=== PATIENT | female | born 1955 | race Caucasian/White ===

== ENCOUNTER 2018-01-23 12:25 | Outpatient (REF) | payer BC, SELFPAY ==
--- NOTE | 2018-01-23 10:00 | PAPFT_PTH ---
PATIENT: Elsa Patton LOC: [facility] U#:[id number] AGE/SX: 62/F ROOM: RE01/23/[address]: SINCERE Monroy : 1955 BED: DIS: 01/23/2018 SPEC #: [id number] RECD: 01/23/18 12:56 STATUS: JELLY RELatanya #: [id number] ELIZABETH: 01/23/18 10:[address]: Dyan Quiles DEPT: [facility] Cytology RECD BY: Mariluz Lyons ENTERED: 01/23/18 12:56 SP TYPE: PAPFT OTHR DR: Carmen Robertson Tissues: 1 - CX/ENDOCX FOR PAP SMEARS Procedures: PAP THIN PREP/UVM Screening HPV DNA PROBE Comments: [id number]
== END 2018-01-23 12:45 ==
LOC: LBN 12:25
PROVIDERS: Visit Provider Nurse Practitioner Family
DX: Z12.4 Encounter for screening for malignant neoplasm of cervix (principal); Z11.51 Encounter for screening for human papillomavirus (HPV)
CPT/HCPCS: 88142; 87624

== ENCOUNTER 2018-02-15 00:49 | Outpatient (CLI) | payer BC, SELFPAY ==
--- NOTE | 2018-02-15 09:14 | DI.MAMMO_ITS ---
SYMPTOMS/DIAGNOSIS: SCREENING, Z12.31 BILATERAL SCREENING MAMMOGRAM: Mammograms were interpreted according to the usual protocol including computer analysis with CAD system, tomosynthesis and C view imaging. Comparison is made with exams from 2012 and 2017. The breasts are composed of scattered fibroglandular densities, breast density category B. No suspicious masses or suspicious microcalcifications are seen. There has been no significant change. IMPRESSION: Category 1B, negative mammogram. Routine screening is recommended. [facility] ASSESSMENT OF FINDINGS: Negative. Category 1. Patient will receive a letter notifying them of these results. BI-RADS category B. There are scattered areas of fibroglandular density.
== END 2018-02-15 01:09 ==
PROVIDERS: Visit Provider Nurse Practitioner Family
DX: Z12.31 Encounter for screening mammogram for malignant neoplasm of breast (principal)
CPT/HCPCS: 77063; 77067

== ENCOUNTER 2018-03-28 09:04 | Outpatient (CLI) | payer BC, SELFPAY ==
[2018-03-28 09:27] LABS: Absolute Basophil Count 0.01 k/cumm (0.0-0.2); Absolute Eosinophil Count 0.04 k/cumm (0.0-0.7); Absolute Lymphocyte Count 0.51 k/cumm (1.2-3.4); Absolute Monocyte Count 0.42 k/cumm (0.11-0.7); Absolute Neutrophil Count 9.48 k/cumm (1.2-6.7); Basophils % 0.1; Eosinophils % 0.4; HGB 13.3 g/dL (12.0-15.5); Immature Grans % 0.9; Lymphocytes % 4.8; Mean Corp. HGB Concentration 31.7 g/dL (32.0-36.0); Mean Corpuscular Hemoglobin 29.2 pg (27.0-33.0); Mean Corpuscular Volume 92.1 fL (80-95); Mean Platelet Volume 10.1 fL (8.0-11.0); Neutrophils % 89.8; Platelet Count 166 x1000/uL (130-400); RBC 4.56 m/cumm (4.00-5.20); White Blood Cell Count 10.56 k/cumm (4.4-10.8)
[2018-03-28 10:28] LABS: ESR 32 MM/HR (0-30)
[2018-03-28 11:33] LABS: ALT 31 U/L (12-78); AST 14 U/L (15-37); Albumin 3.3 g/dL (3.4-5.0); Alkaline Phosphatase 114 U/L (46-116); Anion Gap 7.1 mmol/L (3-11); BUN 17 mg/dL (7-18); Bilirubin, Total 0.5 mg/dL (0.2-1.0); C-Reactive Protein 0.86 mg/dL (0.0-0.3); CO2 32.9 mmol/L (21.0-32.0); Calcium 8.7 mg/dL (8.5-10.1); Chloride 100 mmol/L (98-107); Glucose 89 mg/dL (70-100); Potassium 3.5 mmol/L (3.5-5.1); Sodium 140 mmol/L (136-145); Total Protein 6.5 g/dL (6.4-8.2)
== END 2018-03-28 09:24 ==
PROVIDERS: PCP Family Medicine; Visit Provider Internal Medicine Rheumatology
DX: M02.39 Reiter's disease, multiple sites (principal); R70.0 Elevated erythrocyte sedimentation rate; Z79.899 Other long term (current) drug therapy
CPT/HCPCS: 36415; 80053; 85652; 85025; 86140

== ENCOUNTER 2018-04-28 09:47 | Outpatient (CLI) | payer BC, SELFPAY ==
[2018-04-28 10:26] LABS: HCT 39.4 % (36.0-46.0); HGB 12.3 g/dL (12.0-15.5); Mean Corp. HGB Concentration 31.2 g/dL (32.0-36.0); Mean Corpuscular Hemoglobin 28.5 pg (27.0-33.0); Mean Corpuscular Volume 91.2 fL (80-95); Mean Platelet Volume 10.2 fL (8.0-11.0); Platelet Count 216 x1000/uL (130-400); RBC 4.32 m/cumm (4.00-5.20); RBC Distribution Width 14.6 % (11.7-14.6); White Blood Cell Count 6.19 k/cumm (4.4-10.8)
[2018-04-28 11:17] LABS: ESR 45 MM/HR (0-30)
[2018-04-28 11:30] LABS: ALT 71 U/L (12-78); AST 36 U/L (15-37); Albumin 3.2 g/dL (3.4-5.0); Alkaline Phosphatase 119 U/L (46-116); Anion Gap 6.8 mmol/L (3-11); BUN 14 mg/dL (7-18); Bilirubin, Total 0.4 mg/dL (0.2-1.0); C-Reactive Protein 3.54 mg/dL (0.0-0.3); CO2 29.2 mmol/L (21.0-32.0); CREATININE 0.72 mg/dL (0.55-1.02); Calcium 8.8 mg/dL (8.5-10.1); Chloride 102 mmol/L (98-107); Glucose 94 mg/dL (70-100); Potassium 4.1 mmol/L (3.5-5.1); Sodium 138 mmol/L (136-145); Total Protein 6.3 g/dL (6.4-8.2)
== END 2018-04-28 10:07 ==
PROVIDERS: PCP Family Medicine; Visit Provider Internal Medicine Rheumatology
DX: M02.39 Reiter's disease, multiple sites (principal); Z79.899 Other long term (current) drug therapy
CPT/HCPCS: 36415; 80053; 85027; 85652; 86140

== ENCOUNTER 2018-05-18 09:49 | Outpatient (CLI) | payer BC, SELFPAY ==
[2018-05-18 10:50] LABS: C-Reactive Protein 0.19 mg/dL (0.0-0.3)
[2018-05-18 10:52] LABS: ESR 19 MM/HR (0-30)
== END 2018-05-18 10:09 ==
PROVIDERS: PCP Family Medicine; Visit Provider Internal Medicine Rheumatology
DX: M02.39 Reiter's disease, multiple sites (principal); Z79.899 Other long term (current) drug therapy
CPT/HCPCS: 36415; 85652; 86140

== ENCOUNTER 2018-06-30 09:04 | Outpatient (CLI) | payer BC, SELFPAY ==
[2018-06-30 12:33] LABS: Abs Immature Grans 0.02 k/cumm (0.0-0.09); Absolute Basophil Count 0.01 k/cumm (0.0-0.2); Absolute Lymphocyte Count 0.55 k/cumm (1.2-3.4); Absolute Monocyte Count 0.23 k/cumm (0.11-0.7); Absolute Neutrophil Count 5.61 k/cumm (1.2-6.7); Basophils % 0.2; HCT 41.8 % (36.0-46.0); HGB 13.3 g/dL (12.0-15.5); Immature Grans % 0.3; Lymphocytes % 8.6; Mean Corp. HGB Concentration 31.8 g/dL (32.0-36.0); Mean Corpuscular Hemoglobin 28.7 pg (27.0-33.0); Mean Corpuscular Volume 90.3 fL (80-95); Mean Platelet Volume 10.9 fL (8.0-11.0); Monocytes % 3.6; Neutrophils % 87.3; Platelet Count 225 x1000/uL (130-400); RBC 4.63 m/cumm (4.00-5.20); RBC Distribution Width 13.9 % (11.7-14.6); White Blood Cell Count 6.42 k/cumm (4.4-10.8)
[2018-06-30 13:19] LABS: ESR 22 MM/HR (0-30)
[2018-06-30 13:28] LABS: ALT 38 U/L (12-78); AST 24 U/L (15-37); Albumin 3.9 g/dL (3.4-5.0); Alkaline Phosphatase 59 U/L (46-116); Anion Gap 7.4 mmol/L (3-11); BUN 19 mg/dL (7-18); Bilirubin, Total 0.5 mg/dL (0.2-1.0); C-Reactive Protein 0.18 mg/dL (0.0-0.3); CO2 32.6 mmol/L (21.0-32.0); CREATININE 0.82 mg/dL (0.55-1.02); Calcium 9.1 mg/dL (8.5-10.1); Chloride 100 mmol/L (98-107); Glucose 114 mg/dL (70-100); Potassium 4.1 mmol/L (3.5-5.1); Sodium 140 mmol/L (136-145); Total Protein 6.9 g/dL (6.4-8.2)
== END 2018-06-30 09:24 ==
PROVIDERS: PCP Family Medicine; Visit Provider Internal Medicine Rheumatology
DX: M02.39 Reiter's disease, multiple sites (principal); Z79.899 Other long term (current) drug therapy
CPT/HCPCS: 36415; 80053; 85652; 85025; 86140

== ENCOUNTER 2018-09-26 11:53 | Outpatient (CLI) | payer BC, SELFPAY ==
[2018-09-26 14:04] LABS: C-Reactive Protein 0.36 mg/dL (0.0-0.3)
[2018-09-26 14:36] LABS: ESR 27 MM/HR (0-30)
== END 2018-09-26 12:13 ==
PROVIDERS: PCP Family Medicine; Visit Provider Internal Medicine Rheumatology
DX: M02.39 Reiter's disease, multiple sites (principal); Z79.899 Other long term (current) drug therapy
CPT/HCPCS: 36415; 85652; 86140

== ENCOUNTER 2019-10-16 15:11 | Outpatient (CLI) | payer BC, SELFPAY ==
--- NOTE | 2019-10-16 15:10 | DI.RAD_ITS ---
EXAM: XR KNEE RT 3V AP,LAT,CYRUS CLINICAL HISTORY: RIGHT KNEE PAIN TECHNIQUE: COMPARISON: No exams were available for comparison FINDINGS: Three views were obtained. There is marked narrowing of the medial tibiofemoral cartilaginous joint space with medial subluxation of femur on the tibia. There are prominent marginal osteophytes at the medial joint. There is patella Carmen, correlation requested regarding any possibility of patellar tendon injury. Th ere is a probable small to moderate-sized knee joint effusion. No evidence of fracture. The patella appears to be normally situated on the Merchant view. IMPRESSION:
== END 2019-10-16 15:31 ==
PROVIDERS: PCP Family Medicine; Referring Provider Family Medicine; Visit Provider Student in an Organized Health Care Education/Training Program
DX: M25.561 Pain in right knee (principal); M25.461 Effusion, right knee
CPT/HCPCS: 73562

== ENCOUNTER 2020-02-21 18:54 | Emergency (ER) | payer OTHER, BC, SELFPAY ==
[2020-02-21 19:07] VITALS: BP 130/77; PULSE 68; RESP 15; TEMP 36.8
--- NOTE | 2020-02-21 19:45 | DI.CT_ITS ---
EXAM: CT HEAD CERVICAL SPINE WO COMPARISON: No exams were available for comparison FINDINGS: CT examination of the cervical spine was performed without contrast administration. There is no evide nce of acute cervical spine fracture or dislocation. Tracheolaryngeal structures appear intact. No ce rvical mass or adenopathy. There are moderate degenerative changes of the cervical spine with multil evel disc space narrowing consistent with disc degeneration and moderate hypertrophic spurring of the vertebral endplates and facets particularly in the mid cervical region.. Noncontrast cranial CT was performed. Ventricular system is normal in appearance. No evidence of acut e intracranial hemorrhage, mass effect, or midline shift. No calvarial fracture. The orbital and temp oral bone structures appear intact. IMPRESSION: No evidence of acute cervical spine injury. No evidence of acute intracranial injury. RADIATION DOSE DELIVERED: 962.78mGy.cm Total DLP 962.78mGy.cm Total DLP DATA REPOSITORY: All CT scans at this facility are submitted to the National Radiology Data Registry (NRDR) Dose Index Registry (DIR) with the [employer] (A[employer]). RADIATION OPTIMIZATION: All CT scans at this facility use at least one of these dose optimization te chniques: automated exposure control; mA and/or kV adjustment per patient size (includes targeted exa ms where dose is matched to clinical indication); or iterative reconstruction.
--- NOTE | 2020-02-21 20:04 | ED.GENADUL_ITS ---
Discharge Plan Disposition Patient Disposition: HOME Condition: Stable Discharge Details Clinical Impression: Fall down stairs, Closed head injury, Acute neck sprain Primary Care Provider: Nadia Hernandez ED Provider: Mingo Shields Home Meds and New Rx's Prescriptions: Continued omeprazole 20 mg capsule,delayed release(DR/EC) 20 mg PO DAILY RF: 0 Discharge Instructions Instructions: Head Injury (ED), Cervical Sprain (ED) Additional Instructions: Wear soft collar as needed for support. Please contact your primary care physician to arrange follow-up. Return to the ER for any worsening or new concerning symptoms. Referrals: Nadia Hernandez [Primary Care Provider] - Discharge Data Discharge Date/Time-TO BE ENTERED AT DEPARTURE: 02/21/20 21:23 Medical Decision Making 64-year-old female fell down a flight of stairs and sustained head injury with axial load. No cervical spinal tenderness but does note some mild discomfort at the base of her occiput. She has persistent moderate frontal parietal headache. Neurologically intact. Hemodynamically stable. Abdominal exam is benign. CT of the head was interpreted by radiology: Unremarkable noncontrast head CT with no evidence of an acute intracranial process. C-collar was applied to protect cervical spine. CT of the cervical spine was interpreted by radiology: Cervical spondylosis with no acute cervical fractures detected. Posterior elements appear grossly intact throughout the cervical spine. Mild anterolisthesis of C2 upon C3 and C3 upon C4. Patient observed in the emergency department for greater than 2 hours and had no new or worsening symptoms. Remained hemodynamically stable. Suspect cervical strain. Will apply soft collar. Usual and customary discharge instructions reviewed with the patient. HPI General Mode of arrival: ambulatory . Date/Time Provider Initiated Documentation: 02/21/20 19:37 . Limitations to Documentation: no limitations . Information obtained by: patient . HPI Narrative: 64-year-old female fell down a flight of stairs just prior to arrival. Patient did strike her head on the ground. Patient has chief complaint of posterior mild to moderate headache. Questionable brief LOC dazed. Patient denies visual change. No numbness or tingling. No chest pain or abdominal pain. She does note she has some pain in her right shoulder that feels muscular and also right buttock. Related Data Home Medications Medication Instructions Recorded Confirmed omeprazole 20 mg capsule,delayed 20 mg PO DAILY 10/16/19 02/21/20 release Allergies Allergy/AdvReac Type Severity Reaction Status Date / Time dextromethorphan Allergy Verified 02/21/20 19:11 General Stated Complaint: Orthopedic AMENA: 4 Review of Systems All systems reviewed & are unremarkable except as noted in HPI and below Gastrointestinal Gastrointestinal: Denies abdominal pain Musculoskeletal Musculoskeletal: Reports as per HPI [facility] Medical History (Updated 02/21/20 @ 21:08 by Mingo Shields MD) Abnormal uterine bleeding (AUB) (~2008) Normal endometrial biopsy. Gastroesophageal reflux disease without esophagitis (12/22/16) Takes [id number] ranitidine 1-2 times a day GERD (gastroesophageal reflux disease) Takes [id number] ranitidine. Family History (Updated 02/01/19 @ 09:52 by Dyan Quiles NP) Father Lung cancer in his 30's Mother AA (aortic aneurysm) COPD (chronic obstructive pulmonary disease) Social History (Updated 01/17/18 @ 08:38 by Meredith Le LPN) Smoking/Tobacco Use Status: Never Smoking risk assessment performed?: Yes Alcohol Intake: current Alcohol Intake frequency: 0-2 drinks per day Substance use type: does not use Current gender identity: female Seatbelt use: always Do you feel safe at home: Yes Do you feel safe in your relationship?: Yes Female Reproductive History Menstrual Menopause type: natural History History 4 Para Hx # Term Pregnancies 4 Multiple births Hx # Pregnancies Ectopic pregnancies AB induced Hx Number of Living Children AB spontaneous Exam Const General: cooperative and no acute distress HENMT Mouth: moist mucous membranes Eyes Conjunctivae: normal conjunctivae Sclera: normal sclerae Neck Neck: trachea midline, supple and tender (base of occiput) Resp Auscultation: clear to auscultation bilaterally, no rales, no rhonchi and no wheezes Cardio Rate: regular rate and not tachycardic Rhythm: regular rhythm GI Palpation: soft, not firm, no guarding, no masses, not rigid and nontender Skin General skin exam: no rashes or lesions noted Neuro General: patient alert, patient awake, patient oriented x3 and tone normal Extrem General: no edema Right lower extremity: hip/thigh Details: normal ROM; no tenderness and no crepitus Psych Mental Status: mental status grossly normal Speech and Movement: speech and movement normal Course Vital Signs Vital signs: Vital Signs Temperature 36.8 C 10/29/20 19:07 Pulse 68 02/21/20 19:07 Respiratory Rate 15 02/21/20 19:07 Blood Pressure 130/77 02/21/20 19:07 Temperature 36.8 C 02/21/20 19:07 Temperature Source Temporal Artery Scan 02/21/20 19:07 Pulse 68 02/21/20 19:07 Respiratory Rate 15 02/21/20 19:07 Respiratory Effort 02/21/20 19:17 Blood Pressure 130/77 02/21/20 19:07 Blood Pressure Position Sitting 02/21/20 19:07 Oxygen Delivery Method Room Air 02/21/20 19:07 Oxygen Flow Rate 0 02/21/20 19:07 Pain Level 5 02/21/20 19:07
[2020-02-21 20:51] VITALS: BP 122/62; PULSE 62; O2SAT 98
--- NOTE | 2020-02-21 21:02 | DI.VRAD_ITS ---
PROCEDURE INFORMATION: Exam: CT Head Without Contrast Exam date and time: 02/21/2020 7:54 PM Age: 64 years old Clinical indication: Injury or trauma; Fall; Work related; Blunt trauma (contusions or hematomas); Consciousness not specified; Injury date: 02/21/20; Injury details: Fell down basement stairs TECHNIQUE: Imaging protocol: Computed tomography of the head without contrast. Radiation optimization: All CT scans at this facility use at least one of these dose optimization techniques: automated exposure control; mA and/or kV adjustment per patient size (includes targeted exams where dose is matched to clinical indication); or iterative reconstruction. COMPARISON: No relevant prior studies available. FINDINGS: Brain: Cerebral sulci show bilateral symmetry with no supratentorial mass or mass effect detected. Brainstem and cerebellum are normal in appearance. There is no evidence of acute intracranial hemorrhage. Cerebral ventricles: Ventricular and cisternal spaces are normal in size and configuration and there is no midline shift or hydrocephalus seen. Bones/joints: Bony calvarium and skull base are intact and no acute fractures are detected. Paranasal sinuses: Paranasal sinuses are clear throughout and their bony margins are intact at the levels imaged. Mastoid air cells: Normally pneumatized and clear bilaterally. Soft tissues: Unremarkable. IMPRESSION: Unremarkable noncontrast head CT with no evidence of an acute intracranial process. PROCEDURE INFORMATION: Exam: CT Cervical Spine Without Contrast Exam date and time: 02/21/2020 7:54 PM Age: 64 years old Clinical indication: Injury or trauma; Fall; Work related; Blunt trauma (contusions or hematomas); Consciousness not specified; Injury date: 02/21/20; Injury details: Fell down basement stairs TECHNIQUE: Imaging protocol: Computed tomography images of the cervical spine without contrast. Radiation optimization: All CT scans at this facility use at least one of these dose optimization techniques: automated exposure control; mA and/or kV adjustment per patient size (includes targeted exams where dose is matched to clinical indication); or iterative reconstruction. COMPARISON: No relevant prior studies available. FINDINGS: Bones/joints: The craniocervical and atlantoaxial articulations are preserved and the odontoid process appears intact. There are mild anterolisthesis of C2 upon C3 and C3 upon C4 and there is preservation of vertebral body height throughout cervical levels with no acute fractures or dislocations detected. Posterior elements appear grossly intact throughout the cervical spine. Chronic right TMJ arthropathy noted. Discs/Spinal canal/Neural foramina: There is loss of disc space height and mild posterior osteocartilaginous ridging at C4-C5, C5-C6 and C6-C7 with no severe central canal stenosis detected at any cervical level. Uncovertebral changes produce mild foraminal distortions at mid to lower cervical levels bilaterally. Soft tissues: Unremarkable. Lungs: No pneumothorax or consolidation detected at the lung apices. IMPRESSION: Cervical spondylosis with no acute cervical fractures detected. Dictated and Authenticated by: Mateo Meeks MD. Ordering:SUZIE Aguila MD
== END 2020-02-21 21:23 | disposition home or self-care (01) ==
PROVIDERS: Emergency Provider Student in an Organized Health Care Education/Training Program; PCP Family Medicine
DX: S09.8XXA Other specified injuries of head, initial encounter (principal); S13.9XXA Sprain of joints and ligaments of unspecified parts of neck, initial encounter; W10.8XXA Fall (on) (from) other stairs and steps, initial encounter
CPT/HCPCS: 99284; 70450; 72125; 99283; L0120

== ENCOUNTER 2020-02-26 01:29 | Outpatient (CLI) | payer BC, SELFPAY ==
--- NOTE | 2020-02-26 11:17 | DI.MAMMO_ITS ---
EXAM: MG MAMMO SCREENING CLINICAL HISTORY: SCREENING,Z12.31 TECHNIQUE: Bilateral full field digital CC and MLO mammographic images were obtained with 3D tomosyn thesis and utilizing computer aided detection (CAD). COMPARISON: Available for comparison. FINDINGS: Masses/Architectural Distortion: New asymmetric density in the upper right breast on the mediolateral oblique view. Stable asymmetric breast tissue in the upper outer quadrant of the left breast. Microcalcifications: No suspicious pleomorphic-type are seen. Skin Thickening/Nipple Retraction: None. IMPRESSION: 1. New asymmetric density in the upper right breast on the MLO view. 2. Spot compression view and a right breast ultrasound are recommended for further evaluation. BI-RADS Category 0 - Assessment Incomplete: Need additional imaging evaluation Breast Density - Category B - Scattered areas of fibroglandular density A negative radiographic report should not delay biopsy if a dominant or clinically suspicious mass is present. Up to ten percent of cancers are not identified on mammography. A negative report may reinforce clinical impression. Adenosis and dense breasts may obscure an underlying neoplasm. False positive reports average 6 to 10%. Patient will receive a letter notifying them of these results.
== END 2020-02-26 01:49 ==
PROVIDERS: PCP Family Medicine; Visit Provider Nurse Practitioner Family
DX: Z12.31 Encounter for screening mammogram for malignant neoplasm of breast (principal); R92.8 Other abnormal and inconclusive findings on diagnostic imaging of breast
CPT/HCPCS: 77063; 77067

== ENCOUNTER 2020-02-27 14:38 | Outpatient (CLI) | payer BC, OTHER, SELFPAY ==
--- NOTE | 2020-02-27 11:45 | DI.RAD_ITS ---
EXAM: XR STANDING ALIGNMENT CLINICAL HISTORY: Knee pain. TECHNIQUE: 2D digital imaging was performed. COMPARISON: No exams were available for comparison FINDINGS: The hips are unremarkable. Moderate degenerative changes are seen in the right knee with joint space narrowing and periarticular spurring predominantly in the medial joint compartment. There is mild m edial compartment joint space narrowing of the left knee. The ankles are unremarkable. The right lo wer extremity measures 87.9 cm. The left lower extremity measures 88.1 cm. IMPRESSION: Osteoarthritis of the knees. Right greater than left. DATA REPOSITORY: RADIATION DOSE DELIVERED:
== END 2020-02-27 14:58 ==
PROVIDERS: PCP Family Medicine; Visit Provider Student in an Organized Health Care Education/Training Program
DX: M17.0 Bilateral primary osteoarthritis of knee (principal)
CPT/HCPCS: 77073

== ENCOUNTER 2020-02-28 00:37 | Outpatient (CLI) | payer BC, SELFPAY ==
--- NOTE | 2020-02-28 | DI.US_ITS ---
EXAM: MG MAMMO SCREEN CALL BACK UNI and U/S breast RT limited CLINICAL HISTORY: F/U MAMMO, NEW ASYMMETRIC DENSITY UPPER RT BREAST ON MLO. TECHNIQUE: Craniocaudal and mediolateral oblique Full Field Digital Mammography views of the right b reast with Computer Aided Diagnosis followed by Tomosynthesis and right breast ultrasound. COMPARISON: Prior examinations for comparison. FINDINGS: Mammography/Tomosynthesis: Masses/Architectural Distortion: None seen. Microcalcifictions: No suspicious pleomorphic-type are seen. Skin Thickening/Nipple Retraction: None. Right breast US: Echotexture: Normal appearance of the glandular tissue. Shadowing: No suspicious foci. Cyst: None. Solid lesions: None seen. Ductal dilation: None. IMPRESSION: 1. No evidence of malignancy is noted. 2. A six-month follow-up right mammogram is requested for re-evaluation. 3. The findings were discussed with the patient on the date of the examination. BI-RADS Category 3 - 6 month - Probably Benign Finding: Recommend follow-up mammography in 6 months Breast Density - Category B - Scattered areas of fibroglandular density A negative radiographic report should not delay biopsy if a dominant or clinically suspicious mass is present. Up to ten percent of cancers are not identified on mammography. A negative report may reinforce clinical impression. Adenosis and dense breasts may obscure an underlying neoplasm. False positive reports average 6 to 10%. Patient will receive a letter notifying them of these results.
== END 2020-02-28 00:57 ==
PROVIDERS: PCP Family Medicine; Visit Provider Nurse Practitioner Family
DX: R92.8 Other abnormal and inconclusive findings on diagnostic imaging of breast (principal)
CPT/HCPCS: 76642; 77063; 77067

== ENCOUNTER 2020-04-08 02:24 | Outpatient (CLI) | payer BC, SELFPAY ==
[2020-04-10 21:30] LABS: COVID-19 RT-PCR Result NEGATIVE (Negative)
== END 2020-04-08 02:44 ==
PROVIDERS: PCP Family Medicine; Visit Provider Student in an Organized Health Care Education/Training Program
DX: Z11.59 Encounter for screening for other viral diseases (principal); Z01.818 Encounter for other preprocedural examination
CPT/HCPCS: U0003

== ENCOUNTER 2020-04-11 06:21 | Day surgery (SDC) | payer BC, SELFPAY ==
[2020-04-11 06:33] VITALS: BP 120/69; PULSE 65; RESP 16; TEMP 36.5; O2SAT 98
[2020-04-11] MEDS: Acetaminophen 500 MG TAB 1000 MG PO (06:58)
[2020-04-11] MEDS: Celecoxib 200 MG CAP 400 MG PO (06:58)
[2020-04-11] MEDS: Gabapentin 300 MG CAP PO (06:58)
[2020-04-11] MEDS: Lactated Ringers 1,000 ML 100 ML IV (06:58)
--- NOTE | 2020-04-11 07:15 | DI.RAD_ITS ---
EXAM: XR KNEE RT 2V AP,LAT CLINICAL HISTORY: Postop. TECHNIQUE: 2D digital imaging was performed. COMPARISON: CR XR KNEE RT 3V AP,LAT,CYRUS from 10/16/2019 FINDINGS: BONES: No acute fracture is present. No bony destructive lesion is seen. JOINTS: The knee is normally aligned. The patient is now status post partial right knee replacement. The orthopedic hardware appears in good position. SOFT TISSUE: Postoperative changes are seen in the soft tissues. IMPRESSION: Status post partial right knee replacement. DATA REPOSITORY: RADIATION DOSE DELIVERED:
[2020-04-11] MEDS: ceFAZolin 2 GM/50 ML BAG IVPB (07:40)
[2020-04-11] MEDS: Bupivacaine 0.25% Pres-Free 30 ML VIAL (09:45)
[2020-04-11] MEDS: Ketorolac 30 MG/ML VIAL (09:45)
[2020-04-11 10:45] VITALS: BP 93/48; PULSE 67; RESP 16; TEMP 36.2; O2SAT 97
[2020-04-11 10:50] VITALS: BP 93/45; PULSE 68; RESP 13; TEMP 36.2; O2SAT 97
--- NOTE | 2020-04-11 10:54 | PDOC.DSDIS_ITS ---
Discharge Plan Disposition Patient Disposition: HOME Condition: Stable Discharge Details Reason For Visit: Right knee surgery Attending Provider: Jose Eduardo Bueno Primary Care Provider: Nadia Hernandez Home Meds and New Rx's Prescriptions: New naproxen 250 mg tablet 250 - 500 mg PO BID PRN (Reason: Moderate pain or swelling) Qty: 60 RF: 0 aspirin 325 mg tablet,delayed release (DR/EC) 325 mg PO BID 30 Days Qty: 60 RF: 0 oxycodone 5 mg tablet 5 - 10 mg PO Q4H PRN (Reason: moderate to severe pain) Qty: 16 RF: 0 Continued omeprazole 20 mg capsule,delayed release(DR/EC) 20 mg PO DAILY RF: 0 Discharge Instructions Additional Instructions: Surgery: Right medial unicondylar knee replacement Activity: Weightbearing as tolerated. Recommend elevation to minimize swelling and discomfort. Walk as comfort allows. May use walker as needed. Important to restore full knee extension as soon as possible. May gently progress knee flexion over the next few weeks. Do not rest with pillows behind knee to prevent knee from getting stuck bent. Physical therapy prescription will be sent electronically. Prescriptions: Aspirin 325 mg take 1 twice a day to prevent a blood clot 30 days Naproxen 250 mg take 1-2 every 12 hours with a meal as needed for moderate pain Oxycodone 5 mg take 1-2 every 4-6 hours as needed for severe pain You may use [id number] Tylenol (acetaminophen) as needed for mild pain. These pain medications may be taken all at once or in different combinations as needed. Also, recommend Colace (docusate) as a stool softener as surgery and pain medicine cause constipation. Dressings: Leave Band-Aid in place until follow-up. Keep clean and dry at all times. May remove Fransisco wrap tomorrow. May re-wrap with Fransisco wrap to help control swelling as needed. Follow-up: 10-14 days with an orthopedic physician janitorial assistant and [address] Bueno You may take off the leg compression Fransisco wrap and stockings tomorrow at home. You may also leave them on a few days longer if you have a history of leg swelling or edema. Let us know right away if you develop any redness, drainage, fevers, chest pain, or trouble breathing. Do not drink alcohol or drive for at least 24 hours after anesthesia. Please call the office during business hours with any questions or concerns. Referrals: Jose Eduardo Bueno MD [ [facility] STAFF PHYSICIAN] - Discharge Orders Discharge Orders: Discharge Order (Routine); Ordered 04/11/20 Ordered By: Jose Eduardo Bueno DS: Diagnosis Discharge Diagnosis (1) Arthritis of knee, right: Status: Acute
[2020-04-11 10:55] VITALS: BP 103/49; PULSE 74; RESP 18; TEMP 36.2; O2SAT 96
--- NOTE | 2020-04-11 10:57 | W.PM.OP ---
Date of service: 04/11/20 Time of Service: 08:00 Operative Note Operative Note DATE OF PROCEDURE: 04/11/20 PRE-OP DIAGNOSIS: 1. Right knee medial compartmental arthritis POST-OP DIAGNOSIS: same PROCEDURE: 1. Right knee medial unicompartmental arthroplasty, CPT # 50556 The administrative assistant office manager was medically required as this procedure involves retraction, protection of neurovascular structures, and manipulation of multiple instruments and implants at the same time, which cannot be done without a skilled administrative assistant office manager. SURGEON: Jose Eduardo Bueno DIRECTOR OF STRATEGIC SOURCING: Xena Clifton ANESTHESIA: MAC, regional, local and spinal ESTIMATED BLOOD LOSS: 75 TOURNIQUET TIME: 39 COMPLICATIONS: None Patient was transported to: PACU Patient's condition: stable Implants: DePuy Sigma HP partial knee size 2 metal-backed tibial tray, 8 mm tibial insert fixed bearing, size 2 femoral component Indications: Please see complete medical record for details. Findings: Largely isolated medial compartment arthritis with discrete grade 1 to central trochlear cartilage lesion about 5 x 8 mm Procedure Description: The patient was taken to the operating room and transferred to the operating room table. Spinal anesthesia was induced. All bony prominences were well-padded. Preoperative antibiotics and 1 g TXA were administered. A tourniquet was placed loosely over padding high on the patient's thigh. The knee and lower extremity were prepped and draped in the usual sterile fashion. The correct patient, procedure, and side of the procedure were all verified prior to incision. A slightly medial of midline longitudinal approach was used to the knee extending from the superior pole the patella to the distal aspect of the tibial tubercle. The quadriceps tendon, patella borders, and patellar tendon were exposed. A full-thickness arthrotomy was performed starting splitting the quadriceps tendon and leaving a sleeve of tissue on the medial aspect of the patella and taking care to progress along the medial margin the patellar tendon. The MCL was elevated off the proximal medial tibia. The tibial alignment jig was set in place on the anterior medial aspect of the tibia and carefully adjusted to achieve proper alignment in the coronal and sagittal planes. Reciprocating saw was used to create the vertical cut at the medial aspect of the medial tibial eminence taking care to protect the ACL ligament footprint. The transverse cut was then done using the microsagittal saw through the jig taking care to retract and protect the MCL. The bone piece and cut were inspected and found to be appropriate for patient anatomy. A box rasp was used to clean up the cut especially the L component. The 8 mm spacer block was inserted and found to have good stability and 9 degrees of flexion and the 9 mm spacer block in full extension with approximately 2 mm of joint space opening in 30 degrees of flexion. With the knee in extension, the tibial trial spacer block was used to saroj the rotational alignment and anterior extent of the femoral component. The spacer block was removed and the tibia was sized with the depth gauge. The distal femoral cutting block was inserted with a 1 mm distal femoral mely taking care to orient it appropriately. The cut was done using the saw through the guide. The guide was removed, and the femur was sized with the femoral sizing blocks. The appropriate sized cutting jig was selected. Care was taken to ensure the block was flush with the resected distal femur bone surface. A curved gouge was used to cut the profile of the proximal tip of the femoral prosthesis, saroj the extent of the anterior chamfer cut, and prevent trochlear cartilage delamination. The posterior cut was done through the jig, the anterior cut was done using the osteotomes, the posterior chamfer cut was done to the jig, and the drill was used to drill the 2 peg holes. The cutting block and bone cuts were removed. The medial meniscus remnant was removed. The femoral component trial was placed in the distal femur and the 8 mm spacer block confirmed appropriate balancing in flexion, extension, and again 2 mm of medial joint space opening in 30 degrees of flexion. Tibial template was inserted and the size confirmed to be appropriate. The keel was used by hand to remove bone from the slot and the tibial peg drill was used in the peg hole. The tourniquet was inflated for optimal cementation. The pulse lavage was used to clean the bone surfaces. SmartSet medium viscosity cement was prepared. At the appropriate time during the early working phase, the cement was applied to the backside of the tibial and femoral components. Then, cement was carefully placed and pressurized into the proximal tibia taking care to only have minimal cement posteriorly. The tibial component was inserted at an angle and then impacted directing pressure from posterior to anterior to keep the flow of cement from posterior to anterior. Cement was then applied to the distal femur and the femoral component impacted. Excess cement was removed. The knee was brought into full extension and this position with axial load was maintained until the cement was completely hardened 24 minutes Tibial tray computer aided design designer was removed, and the final tibial insert was inserted and clicked into place. The knee was tested through range of motion found to be stable with equal balancing from full extension to flexion past 90 degrees and a couple millimeters of medial joint space opening in 30 degrees of flexion. The wound was copiously irrigated with the pulse lavage and then Irrisept. A combination 266 mg Exparel, 30 mg ketorolac, and 50 mL bupivicaine 0.25% pain injection was widely infiltrated about the knee. Appropriate hemostasis was achieved. The capsule was approximated using #1 Vicryl in a figure-of-8 interrupted fashion and then closed using Stratafix #1 PDS barbed suture in a running fashion. The superficial layers were irrigated. Subcutaneous tissue was closed using 2-0 Monocryl in a buried interrupted fashion. Skin was closed using 3-0 Monocryl in a buried subcuticular fashion. The skin incision was glued and then covered with a Mepilex Ag dressing. An Fransisco wrap was applied from the foot up to the thigh. The patient awoke from anesthesia without complication was transferred to the recovery room in stable condition.
[2020-04-11] MEDS: oxyCODONE 5 MG TAB PO (11:19)
[2020-04-11] MEDS: ceFAZolin 1 GM/50 ML BAG IVPB (11:40)
[2020-04-11 11:47] VITALS: BP 112/6; PULSE 59; RESP 16; TEMP 36.4; O2SAT 96
--- NOTE | 2020-04-11 16:48 | NUR.NOTE ---
Nursing Note: AT 1600 ELLIOTT CATHETER PLACED AND 200 CC OF CYU EMPTIED INTO THE ELLIOTT BAG. PT EDUCATED ON ELLIOTT CARE AND ALSO CONCERTING BAG TO LET BAG. PT STATES HER SISTER IN LAW IS A NURSE AND SHE WOULD HAVE HER A RESOURCE TOO. PT EDUCATED ON HOW TO DRESS WITH THE ELLIOTT BAG TOO. BEING AWARE OF IF THE CORD IS KINKED OR NOT TOO. GREGORIO WRAPS CHANGED PER MD ORDER PT HAD VOIDED ON THE PREVIOUS GREGORIO WRAPS.
== END 2020-04-11 16:40 | disposition home or self-care (01) ==
PROVIDERS: PCP Family Medicine; Visit Provider Student in an Organized Health Care Education/Training Program
PROC: (CPT 27446; principal; 2020-04-11 07:30)
DX: M17.11 Unilateral primary osteoarthritis, right knee (principal); K21.9 Gastro-esophageal reflux disease without esophagitis
CPT/HCPCS: 27446; 73560; J0690; J1100; J1885; J2001; J2250; J2405

== ENCOUNTER 2020-05-07 15:01 | Outpatient (CLI) | payer BC, SELFPAY ==
--- NOTE | 2020-05-07 14:15 | DI.RAD_ITS ---
EXAM: XR KNEE RT 2V AP,LAT CLINICAL HISTORY: F/u. TECHNIQUE: 2D digital imaging was performed. COMPARISON: CR XR KNEE RT 2V AP,LAT from 04/11/2020 FINDINGS: Stable position alignment of the components of the medial hemiarthroplasty. No fracture or loosening . No radiographic evidence of osteomyelitis. There is a joint effusion noted. IMPRESSION: DATA REPOSITORY: RADIATION DOSE DELIVERED:
== END 2020-05-07 15:21 ==
PROVIDERS: PCP Family Medicine; Visit Provider Student in an Organized Health Care Education/Training Program
DX: Z96.651 Presence of right artificial knee joint (principal); M25.461 Effusion, right knee
CPT/HCPCS: 73560

== ENCOUNTER 2020-06-02 09:18 | Outpatient (REF) | payer BC, SELFPAY ==
[2020-06-02 14:15] LABS: HCT 40.8 % (36.0-46.0); HGB 12.6 g/dL (11.2-15.7); MCHC 30.9 % (32.0-36.0); MCV 90.7 fL (80-95); MPV 11.6 fL (8.0-11.0); Platelet Count 240 10^3/uL (130-400); RDW 12.9 % (11.7-14.6); RDW-SD 42.7 fL; WBC 4.92 10^3/uL (4.4-10.8)
[2020-06-02 14:28] LABS: ALT 58 U/L (14-59); AST 45 U/L (15-37); Albumin 3.8 g/dL (3.4-5.0); Alkaline Phosphatase 99 U/L (46-116); Anion Gap 7.2 mmol/L (3-11); BUN 22 mg/dL (7-18); Bilirubin, Total 0.4 mg/dL (0.2-1.0); CO2 30.8 mmol/L (21.0-32.0); CREATININE 0.7 mg/dL (0.55-1.02); Calcium 9.3 mg/dL (8.5-10.1); Calculated LDL 117 mg/dL (<100); Chloride 104 mmol/L (98-107); Cholesterol 199 mg/dL (<200); Glucose 81 mg/dL (74-106); HDL Cholesterol 73 mg/dL (40-60); Potassium 4.8 mmol/L (3.5-5.1); Sodium 142 mmol/L (136-145); Total Protein 6.8 g/dL (6.4-8.2); Triglyceride 47 mg/dL (<150)
== END 2020-06-02 09:19 | disposition home or self-care (01) ==
LOC: NCHCN 09:18
PROVIDERS: PCP Family Medicine; Visit Provider Family Medicine
DX: Z00.00 Encounter for general adult medical examination without abnormal findings (principal); Z13.0 Encounter for screening for diseases of the blood and blood-forming organs and certain disorders involving the immune mechanism; Z13.220 Encounter for screening for lipoid disorders; Z13.228 Encounter for screening for other metabolic disorders
CPT/HCPCS: 80053; 80061; 85027

== ENCOUNTER 2020-07-30 14:06 | Outpatient (CLI) | payer BC, SELFPAY ==
--- NOTE | 2020-07-30 13:45 | DI.RAD_ITS ---
EXAM: XR KNEE RT 2V AP,LAT INDICATION: s/p right knee unicompartmental replacement. COMPARISON: CR XR KNEE RT 2V AP,LAT from 05/07/2020 TECHNIQUE: 2D digital imaging was performed. FINDINGS: There has been no change in the medial femoral tibial joint space prosthesis. No abnormal bony lucen cies are seen. There is question of a small joint effusion. Degenerative changes are seen at the pa tellofemoral joint. DATA REPOSITORY: RADIATION DOSE DELIVERED:
== END 2020-07-30 14:07 | disposition home or self-care (01) ==
LOC: DIORS 14:07
PROVIDERS: PCP Family Medicine; Referring Provider Family Medicine; Visit Provider Physician Assistant
DX: M17.11 Unilateral primary osteoarthritis, right knee (principal); Z96.651 Presence of right artificial knee joint; Z47.1 Aftercare following joint replacement surgery
CPT/HCPCS: 73560

== ENCOUNTER 2020-08-25 01:13 | Outpatient (CLI) | payer BC, SELFPAY ==
--- NOTE | 2020-08-25 | DI.MAMMO_ITS ---
Exam(s) MG MAMMO DIAGNOSTIC UNI EXAM: MG MAMMO DIAGNOSTIC UNI CLINICAL HISTORY: DIAGNOSTIC, F/U ABNL MAMMO, R92.8.6 MONTH FOLLOW UP. TECHNIQUE: Craniocaudal and mediolateral oblique Full Field Digital Mammography views of the right b reast with Computer Aided Diagnosis followed by Tomosynthesis. COMPARISON: Comparison with prior examinations. FINDINGS: Mammography/Tomosynthesis: Masses/Architectural Distortion: None seen. Microcalcifictions: No suspicious pleomorphic-type are seen. Skin Thickening/Nipple Retraction: None. IMPRESSION: 1. No evidence of malignancy is noted. 2. Unless there is more urgent need, follow-up screening mammography is recommended, as per [place] [employer] guidelines. 3. The findings were discussed with the patient on the date of the examination. BI-RADS Category 1 - Negative Breast Density - Category B - Scattered areas of fibroglandular density Breast density Category C or D implies that the patient has dense breast tissue. Dense breast tissue can make it harder to find cancer on a mammogram. Dense breast tissue is also associated with an incr eased risk of breast cancer. This information about the result of the mammogram report was provided to the patient to raise their awareness. Use this report when you speak with the patient about their risks for breast cancer, which includes their family history. At that time, you may recommend additional screening tests (Ultrasoun d or MRI) as these tests may add significant information. A negative radiographic report should not delay biopsy if a dominant or clinically suspicious mass is present. Up to ten percent of cancers are not identified on mammography. A negative report may reinforce clinical impression. Adenosis and dense breasts may obscure an underlying neoplasm. False positive reports average 6 to 10%. Patient will receive a letter notifying them of these results.
== END 2020-08-25 01:33 ==
PROVIDERS: PCP Family Medicine; Visit Provider Nurse Practitioner Family
DX: Z12.31 Encounter for screening mammogram for malignant neoplasm of breast (principal); R92.8 Other abnormal and inconclusive findings on diagnostic imaging of breast; N64.59 Other signs and symptoms in breast
CPT/HCPCS: 77061; 77065; G0279

== ENCOUNTER 2021-04-08 13:07 | Outpatient (CLI) | payer BC, SELFPAY ==
--- NOTE | 2021-04-08 12:45 | DI.RAD_ITS ---
Exam(s) XR KNEE RT 2V AP,LAT EXAM: XR KNEE RT 2V AP,LAT CLINICAL HISTORY: right knee replacement f/u. TECHNIQUE: 2D digital imaging was performed. COMPARISON: Prior x-rays 07/30/2020 FINDINGS: There is continued stable position alignment of the components of medial arthroplasty. No fracture l oosening evident. No radiographic evidence of osteomyelitis. IMPRESSION: DATA REPOSITORY: RADIATION DOSE DELIVERED:
== END 2021-04-08 13:08 | disposition home or self-care (01) ==
LOC: DIORS 13:07
PROVIDERS: PCP Family Medicine; Referring Provider Family Medicine; Visit Provider Student in an Organized Health Care Education/Training Program
DX: Z96.651 Presence of right artificial knee joint (principal); Z47.1 Aftercare following joint replacement surgery
CPT/HCPCS: 73560

== ENCOUNTER 2021-05-21 10:31 | Outpatient (REF) | payer BC, SELFPAY ==
--- NOTE | 2021-05-21 09:45 | PAPFT_PTH ---
PATIENT: Elsa Patton LOC: [facility] U#:[id number] AGE/SX: 65/F ROOM: RE05/21/[address]: SINCERE Monroy : 1955 BED: DIS: 05/21/2021 SPEC #: [id number] RECD: 05/21/21 12:46 STATUS: JELLY REQ #: [id number] ELIZABETH: 05/21/21 09:[address]: Dyan Qulies DEPT: [facility] Cytology RECD BY: Mariluz Lyons ENTERED: 05/21/21 12:46 SP TYPE: PAPFT OTHR DR: Nadia Hernandez Tissues: 1 - CX/ENDOCX FOR PAP SMEARS Procedures: PAP THIN PREP/UVM Screening HPV DNA PROBE Comments: [id number]
== END 2021-05-21 10:32 | disposition home or self-care (01) ==
LOC: LBN 10:31
PROVIDERS: PCP Family Medicine; Visit Provider Nurse Practitioner Family
DX: Z12.4 Encounter for screening for malignant neoplasm of cervix (principal); Z11.51 Encounter for screening for human papillomavirus (HPV)
CPT/HCPCS: 88142; 87624

== ENCOUNTER 2021-08-25 10:32 | Outpatient (CLI) | payer BC, SELFPAY ==
--- NOTE | 2021-08-25 09:15 | DI.RAD_ITS ---
Exam(s) XR WRIST RT COMPLETE EXAM: XR WRIST RT COMPLETE CLINICAL HISTORY: right wrist pain. TECHNIQUE: 2D digital imaging was performed. COMPARISON: No exams were available for comparison FINDINGS: 3 views No evidence of fracture nor dislocation. No significant ulnar variance. No osseous lesions nor eros ions. No radiopaque foreign body IMPRESSION: No fracture evident. DATA REPOSITORY: RADIATION DOSE DELIVERED:
== END 2021-08-25 10:33 | disposition home or self-care (01) ==
LOC: DIORS 10:32
PROVIDERS: PCP Family Medicine; Referring Provider Family Medicine; Visit Provider Student in an Organized Health Care Education/Training Program
DX: M25.531 Pain in right wrist (principal)
CPT/HCPCS: 73110

== ENCOUNTER 2021-08-27 02:21 | Outpatient (CLI) | payer BC, SELFPAY ==
--- NOTE | 2021-08-27 15:07 | DI.MAMMO_ITS ---
Exam(s) MAMMO SCREENING EXAM: MAMMO SCREENING CLINICAL HISTORY: screening TECHNIQUE: Mammograms were interpreted according to the usual protocol including computer analysis w [employer] CAD system, tomosynthesis and C-view imaging. COMPARISON: FINDINGS: The breasts are of moderate density with fairly symmetrical distribution of fibroglandular tissue. N o dominant mass or clumped microcalcification is identified in either breast. The current examinatio n is compared with previous examinations including February 2020 and there has been no gross interval change in appearance comparison with the prior studies. IMPRESSION: No specific evidence of malignancy at this time. Routine screening examinations are suggested at yea rly intervals in this age group according to the ACS ACR guidelines. BI-RADS Cat 1 - Negative Breast Density - Category B - Scattered areas of fibroglandular density
== END 2021-08-27 02:41 ==
PROVIDERS: PCP Family Medicine; Visit Provider Nurse Practitioner Family
DX: Z12.31 Encounter for screening mammogram for malignant neoplasm of breast (principal)
CPT/HCPCS: 77063; 77067

== ENCOUNTER 2021-09-22 09:25 | Outpatient (CLI) | payer BC, SELFPAY ==
--- NOTE | 2021-09-22 09:00 | DI.RAD_ITS ---
Exam(s) XR KNEE RT 3V AP,LAT,CYRUS EXAM: XR KNEE RT 3V AP,LAT,CYRUS CLINICAL HISTORY: right knee. TECHNIQUE: 2D digital imaging was performed. COMPARISON: CR XR KNEE RT 2V AP,LAT from 04/08/2021 FINDINGS: Four views There is stable appearance of medial hemiarthroplasty. No fracture or loosening evident. Lateral co mpartment exhibits milder degenerative changes. On the merchant's view there is significant degenera tive change evident in the medial aspect of the patellofemoral joint space. Also what appears to be a 2.5 x 2.0 millimeter loose body at this level in the medial compartment. There is also a joint eff usion noted. IMPRESSION: This stable medial hemiarthroplasty. Patellofemoral compartment findings as described above Joint effusion noted. DATA REPOSITORY: RADIATION DOSE DELIVERED:
--- NOTE | 2021-09-22 09:00 | DI.RAD_ITS ---
Exam(s) XR KNEE LT 3V AP,LAT,CYRUS EXAM: XR KNEE LT 3V AP,LAT,CYRUS CLINICAL HISTORY: left knee pain. TECHNIQUE: 2D digital imaging was performed. COMPARISON: CR XR KNEE RT 3V AP,LAT,CYRUS from 09/22/2021 FINDINGS: 3 views No evidence of fracture nor prominent joint effusion. No obvious degenerative changes. On the AP vi ew there is a bone addition density appearing to be on or adjacent to the articular surface of the la teral femoral condyle. Difficult to determine if this is loose intra-articular body or fabella. The re is no obvious osteochondral defect evident. Degenerative subarticular cysts noted in the mid aspe ct of the tibial plateau IMPRESSION: Minimal if any significant degenerative changes. Possible loose intra-articular body (versus fabella ). No obvious degenerative changes and no evidence of obvious joint effusion DATA REPOSITORY: RADIATION DOSE DELIVERED:
== END 2021-09-22 09:26 | disposition home or self-care (01) ==
PROVIDERS: PCP Family Medicine; Referring Provider Family Medicine; Visit Provider Student in an Organized Health Care Education/Training Program
DX: M17.11 Unilateral primary osteoarthritis, right knee (principal); M25.562 Pain in left knee; M23.42 Loose body in knee, left knee; M23.41 Loose body in knee, right knee; M25.461 Effusion, right knee; Z96.651 Presence of right artificial knee joint
CPT/HCPCS: 73562

== ENCOUNTER 2021-09-29 01:23 | Outpatient (CLI) | payer BC, SELFPAY ==
[2021-09-29 11:12] LABS: Abs Immature Grans 0.02 10^3/uL (0.0-0.06); Absolute Basophil Count 0.03 10^3/uL (0.0-0.2); Absolute Eosinophil Count 0.04 10^3/uL (0.0-0.7); Absolute Monocyte Count 0.59 10^3/uL (0.1-0.8); Absolute Neutrophil Count 4.23 10^3/uL (1.2-6.7); Basophils % 0.5; Eosinophils % 0.7; HGB 13.9 g/dL (11.2-15.7); Immature Grans % 0.3; Lymphocytes % 16.9; MCH 28.4 pg (27.0-33.0); MCHC 33.1 % (32.0-36.0); MCV 86 fL (80-95); MPV 10.5 fL (8.0-11.0); Neutrophils % 71.6; Platelet Count 242 10^3/uL (130-400); RBC 4.89 10^6/uL (3.93-5.22); RDW-SD 40.5 fL; WBC 5.91 10^3/uL (4.4-10.8)
[2021-09-29 11:16] LABS: ESR 44 mm/hr (0-30)
[2021-09-29 11:30] LABS: C-Reactive Protein 0.14 mg/dL (0.0-0.3)
== END 2021-09-29 01:24 | disposition home or self-care (01) ==
LOC: LBO 01:23
PROVIDERS: PCP Family Medicine; Visit Provider Student in an Organized Health Care Education/Training Program
DX: M70.51 Other bursitis of knee, right knee; M25.561 Pain in right knee; Z96.651 Presence of right artificial knee joint
CPT/HCPCS: 36415; 85652; 85025; 86140

== ENCOUNTER → 2021-12-22 10:53 | Outpatient (BNVA) | payer MEDICARE, BC, SELFPAY | PROVIDERS: PCP Family Medicine; Referring Provider Family Medicine; Visit Provider Student in an Organized Health Care Education/Training Program | DX: M65.4 Radial styloid tenosynovitis [de Quervain] (principal); M25.531 Pain in right wrist | CPT/HCPCS: 20550; 99213; J1030 ==

== ENCOUNTER 2022-06-07 11:47 | Outpatient (REF) | payer MEDICARE, SELFPAY ==
--- NOTE | 2022-06-07 11:30 | PAPFT_PTH ---
PATIENT: Elsa Patton LOC: [facility] U#:[id number] AGE/SX: 66/F ROOM: RE06/07/[address]: Amber Morrison NP : 1955 BED: DIS: 06/07/2022 SPEC #: [id number] RECD: 06/07/22 12:48 STATUS: JELLY REQ #: [id number] ELIZABETH: 06/07/22 11:[address]: Prince BETANCOURT,Amber DEPT: [facility] Cytology RECD BY: Mariluz Lyons ENTERED: 06/07/22 12:48 SP TYPE: PAPFT OTHR DR: Nadia Hernandez Tissues: 1 - CX/ENDOCX FOR PAP SMEARS Procedures: PAP THIN PREP/UVM Screening HPV DNA PROBE Comments: [id number]
== END 2022-06-07 11:48 | disposition home or self-care (01) ==
LOC: LBN 11:47
PROVIDERS: PCP Family Medicine; Visit Provider Nurse Practitioner Women's Health
DX: Z12.4 Encounter for screening for malignant neoplasm of cervix (principal); Z11.51 Encounter for screening for human papillomavirus (HPV); Z01.419 Encounter for gynecological examination (general) (routine) without abnormal findings
CPT/HCPCS: 88142; 87624

== ENCOUNTER 2022-08-30 01:19 | Outpatient (CLI) | payer MEDICARE, SELFPAY ==
--- NOTE | 2022-08-30 12:31 | DI.MAMMO_ITS ---
Exam(s) MAMMO SCREENING EXAM: MAMMO SCREENING CLINICAL HISTORY: screening TECHNIQUE: Mammograms were interpreted according to the usual protocol including computer analysis w [employer] CAD system, tomosynthesis and C-view imaging. COMPARISON: 2016 through 2021 FINDINGS: The breasts are composed of scattered fibroglandular densities, Breast Density category B. No suspicious masses or suspicious microcalcifications are seen. No skin thickening or abnormal axillary lymph nodes are seen. There has been no significant change from prior exams. IMPRESSION: BI-RADS Category 1, Negative mammogram Yearly screening mammography is recommended. Breast Density - Category B, scattered fibroglandular densities. A negative radiographic report should not delay biopsy if a dominant or clinically suspicious mass is present. Up to ten percent of cancers are not identified on mammography. A negative report may reinforce clinical impression. Adenosis and dense breasts may obscure an underlying neoplasm. False positive reports average 6 to 10%. Patient will receive a letter notifying them of these results.
== END 2022-08-30 01:39 ==
LOC: DI 01:20
PROVIDERS: PCP Family Medicine; Visit Provider Nurse Practitioner Women's Health
DX: Z12.31 Encounter for screening mammogram for malignant neoplasm of breast (principal)
CPT/HCPCS: 77063; 77067

== ENCOUNTER 2022-10-04 09:06 | Outpatient (REF) | payer MEDICARE, SELFPAY ==
[2022-10-04 15:48] LABS: HGB 12.7 g/dL (11.2-15.7); MCH 27.8 pg (27.0-33.0); MCHC 31.8 % (32.0-36.0); MCV 88 fL (80-95); MPV 11.6 fL (8.0-11.0); Platelet Count 234 10^3/uL (130-400); RBC 4.57 10^6/uL (3.93-5.22); RDW 13.2 % (11.7-14.6); RDW-SD 42.5 fL; WBC 4.53 10^3/uL (4.4-10.8)
[2022-10-04 16:03] LABS: ALT 41 U/L (14-59); AST 18 U/L (15-37); Albumin 3.7 g/dL (3.4-5.0); Alkaline Phosphatase 73 U/L (46-116); Anion Gap 6.1 mmol/L (3-11); BUN 13 mg/dL (7-18); Bilirubin, Total 0.5 mg/dL (0.2-1.0); CO2 29.9 mmol/L (21.0-32.0); CREATININE 0.7 mg/dL (0.55-1.02); Calcium 8.7 mg/dL (8.5-10.1); Calculated LDL 105 mg/dL (<100); Chloride 104 mmol/L (98-107); Cholesterol 187 mg/dL (<200); Estimated GFR 95.92 (mL/min/1.73m2); Glucose 95 mg/dL (74-106); HDL Cholesterol 70 mg/dL (40-60); Potassium 4.4 mmol/L (3.5-5.1); Sodium 140 mmol/L (136-145); Total Protein 6.5 g/dL (6.4-8.2); Triglyceride 61 mg/dL (<150)
== END 2022-10-04 09:07 | disposition home or self-care (01) ==
LOC: NCHCN 09:06
PROVIDERS: PCP Family Medicine; Visit Provider Family Medicine
DX: Z00.00 Encounter for general adult medical examination without abnormal findings (principal); M19.079 Primary osteoarthritis, unspecified ankle and foot
CPT/HCPCS: 80053; 80061; 85027

== ENCOUNTER → 2022-10-07 11:00 | Outpatient (BNVA) | payer MEDICARE, SELFPAY | PROVIDERS: PCP Family Medicine; Referring Provider Family Medicine; Visit Provider Physical Therapy Assistant | DX: Z12.11 Encounter for screening for malignant neoplasm of colon (principal) ==

== ENCOUNTER 2022-10-21 09:06 | Day surgery (SDC) | payer MEDICARE, SELFPAY ==
--- NOTE | 2022-10-20 20:08 | W.PM.DSUDISC ---
Date of service: 10/21/22 Time of Service: 10:45 Discharge Plan Disposition Patient Disposition: Home Condition: Good Discharge Details Reason For Visit: colonoscopy Attending Provider: Jose Juan Cross Primary Care Provider: Nadia Hernandez Home Meds and New Rx's Prescriptions: Continued multivitamin Tablet 1 tab PO DAILY Digestive Advantage Probio-Pre 400 million cell tablet,chewable 400 cell PO DAILY calcium carbonate [Tums] 200 mg calcium (500 mg) tablet,chewable 200 mg PO BID PRN omeprazole 20 mg capsule,delayed release(DR/EC) 20 mg PO DAILY cholecalciferol (vitamin D3) 10 mcg (400 unit) capsule 10 mcg PO DAILY ascorbic acid (vitamin C) 250 mg tablet 250 mg PO DAILY Discontinued bisacodyl [Dulcolax (bisacodyl)] 5 mg tablet,delayed release (DR/EC) 5 mg PO ONCE Qty: 4 0RF Rx Instructions: Take per colonoscopy instructions provided by ordering providers office polyethylene glycol 3350 17 gram/dose powder 17 g PO ONCE Qty: 238 0RF Rx Instructions: Take per colonoscopy instructions provided by ordering providers office Discharge Instructions Instructions: Colorectal Polyps (GEN) Additional Instructions: Elsa, your colonoscopy went just fine today. The quality of your prep was outstanding. I did find one rectal polyp. It was quite small. I removed it completely. I will notify you when I have the results from the pathology report with my final recommendations. 1. If tolerated, consume a soft, low fiber diet for 1-2 days. 2. Do not drive, drink alcohol, operate machinery, make critical decisions, or do activities that require coordination or balance for 24 hours. 3. Because air was put into your colon during the procedure, expelling air from your rectum (passing gas or farting) is normal. 4. You may not have a bowel movement for 1-3 days because of the colonoscopy prep. This is normal. 5. Go directly to the emergency room if you notice any of the following: Develop chills (warm to touch), or if you have a thermometer and your temperature is above 101 Difficulty breathing or difficultly swallowing Persistent vomiting Severe abdominal pain, other than gas cramps Severe chest pain Black, tarry stools Any bleeding ? exceeding one tablespoon 6. Call your physician if the site where your intravenous was started becomes red, swollen, painful, and warm to touch. 7. Your physician has reviewed your pre-procedure medications. Please continue to take those medications as previously ordered. You will be given specific information/education regarding any changes to your medications before leaving. Activity:: Activity as Tolerated Diet:: As Tolerated Discharge Orders Discharge Orders: Discharge Order (Routine); Ordered 10/20/22 Ordered By: Jose Juan Cross DS: Diagnosis Discharge Diagnosis (1) Screen for colon cancer: Status: Acute Asessment and Plan: Follow-up on polypectomy results
--- NOTE | 2022-10-20 20:10 | W.COLOREPORT ---
Date of service: 10/21/22 Time of Service: 10:47 Colonoscopy Report Date of procedure: 10/21/22 Pre-op diagnosis general: Screening colonoscopy Post-op diagnosis procedure note: other (Rectal polyp) Procedure: Colonoscopy with polypectomy Surgeon: Jose Juan Cross Anesthesia Type: General:No Airway Estimated blood loss (mL): 5 Pathology: other (Rectal polyp) Complications: None Disposition: same day Indications: Elsa is a 66 year old woman who needs her next screening colonoscopy Prep: Miralax/Dulcolax Procedure Start Time: 10:24 Procedure End Time: 10:34 Retraction Time: 6 Findings: Rectal polyp Procedure Description: After the induction of monitored anesthetic care, and with the patient in left lateral decubitus position, I began by performing an external anorectal exam.? Perineum and skin were normal, as was the anal verge.? There was no evidence of external hemorrhoids.? Next, I performed a digital rectal exam.? I did not appreciate any abnormal findings.? Next, I advanced a colonoscope into the rectal vault.? I performed retroflexion.? This appeared normal.? Using insufflation, I then advanced the colonoscope beyond the rectal folds and into the sigmoid colon before advancing towards the cecum.? The quality of the prep was outstanding.? The scope was noted to be in the cecum by identification of the ileocecal valve and appendiceal orifice.? I then began withdrawing the colonoscope using repeated irrigation as necessary for full evaluation of the colonic mucosa. ?Once the scope was withdrawn to the level of the rectum, great care was taken to examine portions of the rectal folds. Within the rectal vault was a 0.25 cm sessile rectal polyp. I removed it with cold forcep polypectomy. There was minimal bleeding.? Finally, the scope was withdrawn and the patient was brought to the same-day surgery recovery unit as the anesthetic wore off. ?The findings and instructions were shared with the patient prior to discharge.
[2022-10-21 09:25] VITALS: BP 127/75; PULSE 62; RESP 16; TEMP 36.3; O2SAT 98
[2022-10-21] MEDS: Lactated Ringers 1,000 ML 80 ML IV (09:25)
--- NOTE | 2022-10-21 10:33 | BOWEL_PTH ---
PATIENT: Elsa Patton LOC: [facility] U#:[id number] AGE/SX: 66/F ROOM: RE10/21/[address]: Jose Juan Cross MD : 1955 BED: DIS: 10/21/2022 SPEC #: [id number] RECD: 10/21/22 12:47 STATUS: JELLY REQ #: [id number] ELIZABETH: 10/21/22 10:[address]: Jose Juan Cross DEPT: Surgical Specimen RECD BY: Mariluz Lyons ENTERED: 10/21/22 12:47 SP TYPE: Bowel OTHR DR: Nadia Hernandez Tissues: 1 - BIOPSY BOWEL Procedures: GROSS AND MICRO LEVEL 4 Comments: [id number]
[2022-10-21 10:38] VITALS: BP 97/66; PULSE 63; RESP 18; TEMP 36.1; O2SAT 96
[2022-10-21 10:58] VITALS: BMI 30.7
--- NOTE | 2022-10-21 10:58 | ANES.PREOP_ITS ---
General Info Date of Service Date Performed: 10/21/22 Height: 5 ft 3 in Weight: 78.5 kg Body Mass Index (BMI): 30.7 Surgical Procedure: Operation Date: 10/21/22 10:05 Proposed Procedure Side Surgeon p Colonoscopy Jose Juan Cross MD Actual Procedure Side Surgeon p Colonoscopy Not Applicable Jose Juan Cross MD Pre-Op Diagnosis Post-Op Diagnosis screening rectal polyp Meds Allergies and Home Medications Allergies Allergy/AdvReac Type Severity Reaction Status Date / Time dextromethorphan Allergy Verified 10/21/22 09:25 Home Medication Medication Instructions Recorded omeprazole 20 mg capsule,delayed 20 mg PO DAILY 10/16/19 release ascorbic acid (vitamin C) 250 mg 250 mg PO DAILY 04/08/21 tablet cholecalciferol (vitamin D3) 10 10 mcg PO DAILY 04/08/21 mcg (400 unit) capsule Bacillus coagulans 400 million 400 cell PO DAILY 06/07/22 cell chewable tablet (Digestive Advantage Probiotics-Prebiotic) calcium carbonate 200 mg calcium 200 mg PO BID PRN 06/07/22 (500 mg) chewable tablet (Tums) multivitamin 1 tab PO DAILY 06/07/22 Current Visit Medications: Current Medications Generic Name Dose Route Start Last Admin Trade Name Freq PRN Reason Stop Dose Admin Hyoscyamine Sulfate 0.125 mg 10/20/22 20:11 Hyoscyamine 0.125 Mg Sl/Oral/Chew SL 11/19/22 20:10 DIRECTED PRN Ringer's Solution 1,000 mls @ 80 mls/hr 10/21/22 06:00 10/21/22 10:35 IV 11/19/22 23:59 80 mls/hr INFUSION HANNAH Infusion IV Miscellaneous Supplies 1 each 10/21/22 06:00 Iv Access IV 11/19/22 23:59 DIRECTED HANNAH Ondansetron HCl 4 mg 10/20/22 20:11 Ondansetron 4 Mg/2 Ml Vial IVP 11/19/22 20:10 Q4H PRN PRN Nausea / Vomiting Sodium Chloride 0 ml 10/21/22 06:00 Normal Saline Flush 10 Ml Syr IV 11/19/22 23:59 PRN PRN Sodium Chloride 0 ml 10/21/22 06:00 Normal Saline 10 Ml Vial IJ 11/19/22 23:59 DIRECTED PRN Sterile Water 0 ml 10/21/22 06:00 Water,Injection,Sterile 10 Ml Vial IJ 11/19/22 23:59 DIRECTED PRN PFSH Active Problems Active Problems: Problem Status Onset Code Screen for colon cancer Z12.11 Pes anserinus bursitis of right knee M70.51 De Quervain's tenosynovitis, right M65.4 Pes anserinus bursitis of right knee M70.51 Status post unicompartmental knee replacement, 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 GERD (gastroesophageal reflux disease) Takes [id number] ranitidine. Normal colonoscopy Tobacco Smoking/Tobacco Use Status: Never Alcohol Alcohol Intake: current Alcohol intake frequency: a few times a week Alcohol typ e: beer Substance Use Substance use: Never Substance use type: does not use Prental History History 4 Para Hx # Term Pregnancies 4 Multiple births Hx # Pregnancies Ectopic pregnancies AB induced Hx Number of Living Children AB spontaneous Vital Signs and Lab Results Vital Signs Most Recent Vital Signs in EMR: Most Recent Vital Signs Temp Pulse Resp BP Pulse Ox 36.1 C L 63 18 97/66 L 96 10/21/22 10:38 10/21/22 10:38 10/21/22 10:38 10/21/22 10:38 10/21/22 10:38 Lab Results Blood Type / Crossmatch: No Data to Display Complete Blood Count: White Blood Count 4.53 10^3/uL (4.4-10.8) 10/04/22 08:25 Red Blood Count 4.57 10^6/uL (3.93-5.22) 10/04/22 08:25 Hemoglobin 12.7 g/dL (11.2-15.7) 10/04/22 08:25 Hematocrit 40.0 % (36.0-46.0) 10/04/22 08:25 Platelet Count 234 10^3/uL (130-400) 10/04/22 08:25 Complete Metabolic Panel: Sodium 140 mmol/L (136-145) 10/04/22 08:25 Potassium 4.4 mmol/L (3.5-5.1) 10/04/22 08:25 Chloride 104 mmol/L (98-107) 10/04/22 08:25 Carbon Dioxide 29.9 mmol/L (21.0-32.0) 10/04/22 08:25 BUN 13 mg/dL (7-18) 10/04/22 08:25 Creatinine 0.7 mg/dL (0.55-1.02) 10/04/22 08:25 Est GFR (CKD-EPI 2020) 95.92 (mL/min/1.73m2) 10/04/22 08:25 Calcium 8.7 mg/dL (8.5-10.1) 10/04/22 08:25 Albumin 3.7 g/dL (3.4-5.0) 10/04/22 08:25 Glucose 95 mg/dL (74-106) 10/04/22 08:25 Liver Function Panel: Alanine Aminotransferase (ALT/SGPT) 41 U/L (14-59) 10/04/22 08: 25 Aspartate Amino Transf (AST/SGOT) 18 U/L (15-37) 10/04/22 08:25 Coagulation Panel: No Data to Display Cardiac Panel: No Data to Display Arterial Blood Gas: No Data to Display Venous Blood Gas: No Data to Display Pancreas Panel: No Data to Display Thyroid Panel: No Data to Display Infectious Disease: No Data to Display Blood Cultures: No Data to Display Toxicology Panel: No Data to Display Anesthesia Assessment and Plan Anesthesia History Personal History: No History of Anesthesia Complications Family History: No Family History of Anesthesia Complications Exercise Tolerance Exercise Tolerance: Metabolic Equivalents>4 Pertinent Negatives Pertinent Negatives: No Major Cardiovascular Symptoms or Complaints, No Major Pulmonary Symptoms or Complaints and No History of CVA/TIA Cardiac & Pulmonary Exam Cardiac Exam: Normal S1/S2 Heart Sounds Pulmonary Exam: Clear Bilateral Breath Sounds Implantable Cardiac Device Does patient have a Pacemaker or an ICD?: No Airway Exam Known Difficult Airway: No Mallampati Class: 2 Mouth Opening: Normal (> 3cm) Thyromental Distance: Greater than 3 cm Neck Range of Motion: Full ROM Neck Circumference: Normal Teeth Condition: Normal Dentition ASA Classification ASA Score: ASA 2 Emergency Case?: No NPO Status NPO Status: NPO Clears >2 hours, Solids >8 hours Anesthesia Plan Resuscitation Status: Full Code Anesthesia Technique: General Anesthesia Airway Planned: Natural Airway Monitors Used: Standard Monitors
[2022-10-21 11:10] VITALS: BP 100/65; PULSE 63; RESP 18; TEMP 36.3; O2SAT 97
--- NOTE | 2022-10-21 12:39 | W.ANESPOSTOP ---
Postoperative Evaluation Date, Time and Location Date Performed: 10/21/22 Time Performed: 12:39 Patient Location: Day Surgery Unit Vital Signs Most Recent Imported Vital Signs: Most Recent Vital Signs Temp Pulse Resp BP Pulse Ox 36.3 C L 63 18 100/65 97 10/21/22 11:10 10/21/22 11:10 10/21/22 11:10 10/21/22 11:10 10/21/22 11:10 Pain Score Most Recent Pain Score: Most Recent Pain Score Pain Level 0 10/21/22 11:10 Assessment Mental Status: Awake (Alert & Oriented to Patient Baseline) Airway and Respiratory Function: Patent airway with normal (patient baseline) respiratory exam Cardiovascular Function: Hemodynamically Stable Hydration Status: Adequately Hydrated Nausea & Vomiting: No Nausea or Vomiting Pain: Pt. Denies Any Pain Peripheral Nerve Block: Patient did not receive a nerve block
== END 2022-10-21 11:22 | disposition home or self-care (01) ==
PROVIDERS: PCP Family Medicine; Visit Provider Surgery
PROC: 0DJD8ZZ Inspection of Lower Intestinal Tract, Via Natural or Artificial Opening Endoscopic (ICD-10-PCS; CPT 45378; principal; 2022-10-21 10:00)
DX: Z12.11 Encounter for screening for malignant neoplasm of colon (principal); K62.1 Rectal polyp
CPT/HCPCS: 45380; 88305; J2001

== ENCOUNTER 2022-11-16 06:16 | Day surgery (SDC) | payer OTHER, SELFPAY ==
[2022-11-16 06:15] VITALS: BP 112/80; PULSE 67; RESP 18; TEMP 36.4; O2SAT 97
--- NOTE | 2022-11-16 06:23 | W.ANESPRE ---
General Info Date of Service Date Performed: 11/16/22 Height: 5 ft 3 in Weight: 78.5 kg Body Mass Index (BMI): 30.7 Surgical Procedure: Operation Date: 11/16/22 07:40 Proposed Procedure Side Surgeon p Wrist Dequervains Release Right Malcolm Reid MD Meds Allergies and Home Medications Allergies Allergy/AdvReac Type Severity Reaction Status Date / Time dextromethorphan Allergy Verified 11/15/22 11:22 Home Medication Medication Instructions Recorded omeprazole 20 mg capsule,delayed 20 mg PO DAILY 10/16/19 release ascorbic acid (vitamin C) 250 mg 250 mg PO DAILY 04/08/21 tablet cholecalciferol (vitamin D3) 10 10 mcg PO DAILY 04/08/21 mcg (400 unit) capsule Bacillus coagulans 400 million 400 cell PO DAILY 06/07/22 cell chewable tablet (Digestive Advantage Probiotics-Prebiotic) calcium carbonate 200 mg calcium 200 mg PO BID PRN 06/07/22 (500 mg) chewable tablet (Tums) multivitamin 1 tab PO DAILY 06/07/22 acetaminophen 500 mg tablet 500 mg PO Q6H PRN pain #60 tabs 11/16/22 hydrocodone 5 mg-acetaminophen 325 1 tab PO Q6H PRN severe pain #6 11/16/22 mg tablet tabs ibuprofen 600 mg tablet 600 mg PO TID PRN pain #60 tabs 11/16/22 Current Visit Medications: Current Medications Generic Name Dose Route Start Last Admin Trade Name Freq PRN Reason Stop Dose Admin Ringer's Solution 1,000 mls @ 80 mls/hr 11/16/22 06:00 IV 12/15/22 23:59 INFUSION HANNAH Cefazolin Sodium/Dextrose 2 gm in 50 mls @ 100 mls/hr 11/16/22 06:00 Ancef Duplex IVPB 12/15/22 23:59 PREOP HANNAH IV Miscellaneous Supplies 1 each 11/16/22 06:00 Iv Access IV 12/15/22 23:59 DIRECTED HANNAH Sodium Chloride 0 ml 11/16/22 06:00 Normal Saline Flush 10 Ml Syr IV 12/15/22 23:59 PRN PRN Sodium Chloride 0 ml 11/16/22 06:00 Normal Saline 10 Ml Vial IJ 12/15/22 23:59 DIRECTED PRN Sterile Water 0 ml 11/16/22 06:00 Water,Injection,Sterile 10 Ml Vial IJ 12/15/22 23:59 DIRECTED PRN PFSH Active Problems Active Problems: Problem Status Onset Code Screen for colon cancer Z12.11 Pes anserinus bursitis of right knee M70.51 De Quervain's tenosynovitis, right M65.4 Pes anserinus bursitis of right knee M70.51 Status post unicompartmental knee replacement, 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 GERD (gastroesophageal reflux disease) Takes [id number] ranitidine. Normal colonoscopy Tobacco Smoking/Tobacco Use Status: Never Alcohol Alcohol Intake: current Alcohol intake frequency: a few times a week Alcohol type: beer Substance Use Substance use: Never Substance use type: does not use Prental History History 4 Para Hx # Term Pregnancies 4 Multiple births Hx # Pregnancies Ectopic pregnancies AB induced Hx Number of Living Children AB spontaneous Vital Signs and Lab Results Vital Signs Most Recent Vital Signs in EMR: Temp Pulse Resp BP Pulse Ox 36.4 C L 67 18 112/80 97 11/16/22 06:15 11/16/22 06:15 11/16/22 06:15 11/16/22 06:15 11/16/22 06:15 Lab Results Blood Type / Crossmatch: No Data to Display Complete Blood Count: No Data to Display Complete Metabolic Panel: No Data to Display Liver Function Panel: No Data to Display Coagulation Panel: No Data to Display Cardiac Panel: No Data to Display Arterial Blood Gas: No Data to Display Venous Blood Gas: No Data to Display Pancreas Panel: No Data to Display Thyroid Panel: No Data to Display Infectious Disease: No Data to Display Blood Cultures: No Data to Display Toxicology Panel: No Data to Display Anesthesia Assessment and Plan Anesthesia History Personal History: No History of Anesthesia Complications Family History: No Family History of Anesthesia Complications Exercise Tolerance Exercise Tolerance: Metabolic Equivalents>4 Cardiac & Pulmonary Exam Cardiac Exam: Normal S1/S2 Heart Sounds Pulmonary Exam: Clear Bilateral Breath Sounds Implantable Cardiac Device Does patient have a Pacemaker or an ICD?: No Airway Exam Known Difficult Airway: No Mallampati Class: 2 Mouth Opening: Normal (> 3cm) Thyromental Distance: Greater than 3 cm Neck Range of Motion: Full ROM Neck Circumference: Normal Teeth Condition: Normal Dentition ASA Classification ASA Score: ASA 2 Emergency Case?: No NPO Status NPO Status: NPO Clears >2 hours, Solids >8 hours Anesthesia Plan Resuscitation Status: Full Code Anesthesia Technique: General Anesthesia Airway Planned: Natural Airway Monitors Used: Standard Monitors Preoperative Comments:: 66 yo female for dequervains release. Sig PMHx: GERD (well controlled), never smoker, occ EtOH. Previous Anes: - colo, prop, natural airway, no issues.
[2022-11-16] MEDS: Lactated Ringers 1,000 ML 80 ML IV (06:49)
[2022-11-16 06:53] VITALS: BMI 30.7
--- NOTE | 2022-11-16 07:10 | W.PM.DSUDISC ---
Date of service: 11/16/22 Time of Service: 07:13 Discharge Plan Disposition Patient Disposition: Home Condition: Good Discharge Details Reason For Visit: Right Serene's Tenosynovitis Attending Provider: Malcolm Reid Primary Care Provider: Nadia Hernandez Home Meds and New Rx's Prescriptions: New acetaminophen 500 mg tablet 500 mg PO Q6H PRN (Reason: pain) Qty: 60 2RF hydrocodone-acetaminophen 5-325 mg tablet 1 tab PO Q6H PRN (Reason: severe pain) Qty: 6 0RF Rx Instructions: Take one tablet up to every 6 hours as needed for severe postoperative pain ibuprofen 600 mg tablet 600 mg PO TID PRN (Reason: pain) Qty: 60 0RF Continued multivitamin Tablet 1 tab PO DAILY Digestive Advantage Probio-Pre 400 million cell tablet,chewable 400 cell PO DAILY calcium carbonate [Tums] 200 mg calcium (500 mg) tablet,chewable 200 mg PO BID PRN omeprazole 20 mg capsule,delayed release(DR/EC) 20 mg PO DAILY cholecalciferol (vitamin D3) 10 mcg (400 unit) capsule 10 mcg PO DAILY ascorbic acid (vitamin C) 250 mg tablet 250 mg PO DAILY Discharge Instructions Additional Instructions: Serene's Discharge Instructions Activity: You should keep the hand elevated as much as possible for the first few days. You may use the other fingers as tolerated but avoid trying to do too much too soon. You may perform light activities with the splint in place. Dressing/Cast: Your splint should stay in place at all times. Do NOT get it wet. You may loosen the GREGORIO wrap if you feel it is too tight and then rewrap more loosely. Medications: - You should take Tylenol and Ibuprofen for baseline pain control. - You have Hydrocodone for breakthrough pain. - You may apply ice over the thumb. Follow-up: 7-10 days Equipment/Supplies: Splint Activity:: Elevate Remove Dressings/Wound Care:: Do Not Remove Shower/Bathe:: Cover Diet:: As Tolerated Discharge Orders Discharge Orders: Discharge Order (Routine); Ordered 11/16/22 Ordered By: Xena Clifton
--- NOTE | 2022-11-16 07:19 | W.PREOPHP ---
Assessment and Plan Assessment and plan (1) De Quervain's tenosynovitis, right: Status: Acute Assessment and plan: Elsa is a 66-year-old female who has de Quervain's tenosynovitis but the right side. She has had multiple injections but continues to have pain and limitations due to this condition. Given the failure of nonoperative options I have offered surgical decompression of the first extensor compartment. I reviewed this with her. I discussed the technical features. I discussed the risk to include continued symptoms, missed compartments, damage to superficial nerves and vessels, tendon instability or subluxation, stiffness, need for repeat procedures. Despite these risk, she elects to proceed. We did briefly discuss postoperative restrictions and recovery. All of her questions were answered. History of Present Illness History of Present Illness Chief Complaint: Right de Quervain's tenosynovitis Narrative: Elsa is a 66-year-old active female who has had ongoing right thumb and wrist pain. She has been diagnosed with de Quervain's tenosynovitis. Please see the previous office note for complete detailed history. She is here today for first extensor compartment release. She reports no medical issues. No recent health changes. No chest pain or shortness of breath. Review of Systems All systems reviewed & are unremarkable except as noted in HPI and below PFSH All Active Problems Screen for colon cancer (Acute) Pes anserinus bursitis of right knee (Acute) De Quervain's tenosynovitis, right (Acute) Steroid injection: 12/22/2021; 08/25/2021 Pes anserinus bursitis of right knee (Acute) Status post unicompartmental knee replacement, right (Acute 04/11/20) Arthritis of knee, right (Acute) Medical History Abnormal uterine bleeding (AUB) (~2008) Normal endometrial biopsy. GERD (gastroesophageal reflux disease) Takes [id number] ranitidine. Normal colonoscopy Family History Father Lung cancer in his 30's Mother AA (aortic aneurysm) COPD (chronic obstructive pulmonary disease) Social History Smoking/Tobacco Use Status: Never Smoking risk assessment performed?: Yes Alcohol Intake: current Alcohol Intake frequency: a few times a week Alcohol type: beer Drug use: Never Substance use type: does not use Housing: house Current gender identity: female Seatbelt use: always Do you feel safe at home: Yes Do you feel safe in your relationship?: Yes Female Reproductive History Menstrual Menopause type: natural History History 4 Para Hx # Term Pregnancies 4 Multiple births Hx # Pregnancies Ectopic pregnancies AB induced Hx Number of Living Children AB spontaneous Meds Allergies and Home Medications Allergies Allergy/AdvReac Type Severity Reaction Status Date / Time dextromethorphan Allergy Verified 11/15/22 11:22 Home Medications Medication Instructions Recorded Confirmed Type omeprazole 20 mg capsule,delayed 20 mg PO DAILY 10/16/19 11/16/22 History release ascorbic acid (vitamin C) 250 mg 250 mg PO DAILY 04/08/21 11/15/22 History tablet cholecalciferol (vitamin D3) 10 10 mcg PO DAILY 04/08/21 11/15/22 History mcg (400 unit) capsule Bacillus coagulans 400 million 400 cell PO DAILY 06/07/22 11/15/22 History cell chewable tablet (Digestive Advantage Probiotics-Prebiotic) calcium carbonate 200 mg calcium 200 mg PO BID PRN 06/07/22 11/15/22 History (500 mg) chewable tablet (Tums) multivitamin 1 tab PO DAILY 06/07/22 11/16/22 History acetaminophen 500 mg tablet 500 mg PO Q6H PRN pain #60 tabs 11/16/22 Rx hydrocodone 5 mg-acetaminophen 325 1 tab PO Q6H PRN severe pain #6 11/16/22 Rx mg tablet tabs ibuprofen 600 mg tablet 600 mg PO TID PRN pain #60 tabs 11/16/22 Rx Results Last Vital Signs Temp 36.4 C L 11/16/22 06:15 Pulse 67 11/16/22 06:15 Resp 18 11/16/22 06:15 BP 112/80 11/16/22 06:15 Pulse Ox 97 11/16/22 06:15
[2022-11-16] MEDS: Lidocaine 1% Pres-Free W/EPI 1/200,000 30 ML VIAL (07:35)
[2022-11-16] MEDS: Sodium Bicarbonate 50 MEQ/50 ML VIAL (07:35)
[2022-11-16 08:15] VITALS: BP 103/66; BP 108/70; PULSE 53; PULSE 65; RESP 16; RESP 18; TEMP 36; O2SAT 95; O2SAT 96
--- NOTE | 2022-11-16 08:47 | W.ANESPOSTOP ---
Postoperative Evaluation Date, Time and Location Date Performed: 11/16/22 Time Performed: 08:15 Patient Location: Day Surgery Unit Vital Signs Most Recent Imported Vital Signs: Most Recent Vital Signs Temp Pulse Resp BP Pulse Ox 36 C L 53 L 18 108/70 96 11/16/22 08:15 11/16/22 08:15 11/16/22 08:15 11/16/22 08:15 11/16/22 08:15 Pain Score Most Recent Pain Score: Most Recent Pain Score Pain Level 0 11/16/22 08:15 Assessment Mental Status: Awake (Alert & Oriented to Patient Baseline) Airway and Respiratory Function: Patent airway with normal (patient baseline) respiratory exam Cardiovascular Function: Hemodynamically Stable Hydration Status: Adequately Hydrated Nausea & Vomiting: No Nausea or Vomiting Pain: Pt. Denies Any Pain Peripheral Nerve Block: Patient did not receive a nerve block
--- NOTE | 2022-11-16 11:56 | ROE_ITS ---
Date of service: 11/16/22 Time of Service: 07:45 Operative Note Operative Note DATE OF PROCEDURE: 11/16/22 PRE-OP DIAGNOSIS: Right Dequervain's Tenosynovitis POST-OP DIAGNOSIS: same PROCEDURE: Right First Extensor Compartment Release SURGEON: Malcolm Reid ANESTHESIA TYPE: General:No Airway Refer to Anesthesia Record ESTIMATED BLOOD LOSS: 5 PATHOLOGY: none sent TOURNIQUET TIME: 0 COMPLICATIONS: None Patient was transported to: same day Patient's condition: stable Indications: Elsa is a 66yo female who has had symptoms of Dequervain's tenosynovitis. Nonoperative treatment options had been trialed. Given their failure, I offered operative intervention. I reviewed the technical details of a first extensor compartment release. I reviewed the risk of the procedure to include bleeding, infection, pain, stiffness, tendon instability, damage to the superficial radial nerve, and complete release. Despite these risks, the patient elected to proceed. Findings: There was a tightened first excessive compartment. No subcompartments were seen encasing the EPB tendon. There were 3 main slips of APL tendon. Procedure Description: Elsa was greeted in the preoperative holding area. Name and surgical site were confirmed. The history and physical was completed. The consent was reviewed the patient and signed. Elsa was taken back to the operating room. The patient was placed in the supine position and monitored anesthesia care was initiated. The right was then prepped with ChloraPrep and draped in a standard fashion. Prophylactic antibiotics in the form of cefazolin were administered. A timeout was performed for safe surgery. The surgical site was drawn on the skin. The planned surgical field was anesthetized with 1% Lidocaine with epinephrine. A 2 cm incision was made longitudinally over the radial styloid. The skin was incised only. The deep tissue and subcutaneous fat was dissected with a tenotomy scissors trying to protect bridge of the superficial radial nerve. Any branches that were identified were retracted out of the way. The first compartment extensor tendons were then identified. The distal aspect of the first compartment was noted and were released. This release was performed more on the dorsal side to prevent tendon subluxation. The entirety of the first extensor compartment was then released. The slips of the abductor pollicis longus tendon were inspected. They removed to confirm the appropriate motion of the thumb. The extensor pollicis brevis tendon was then identified. It was fully released. Traction on the tendon was also used to confirm appropriate extension of the thumb confirming the release of the appropriate tendon. The dorsal radial surface of the radius was once again inspected to make sure there is no other sub- compartments or other restrictions to tendon motion. The wound was then thoroughly irrigated. The deep tissue was closed with a 3-0 Vicryl. The skin was closed with a running subjective 4-0 Monocryl. Skin glue was applied. The hand was dressed with 4 x 4's, Kerlex and GREGORIO wrap into a soft thumb spica splint. All counts were correct. Patient was transferred back to same day surgery area in stable condition.
== END 2022-11-16 08:43 | disposition home or self-care (01) ==
PROVIDERS: PCP Family Medicine; Visit Provider Student in an Organized Health Care Education/Training Program
PROC: (CPT 25000; principal; 2022-11-16 07:30)
DX: M65.4 Radial styloid tenosynovitis [de Quervain] (principal); K21.9 Gastro-esophageal reflux disease without esophagitis
CPT/HCPCS: 25000; J1885; J2001; J2405

== ENCOUNTER → 2023-03-02 00:34 | Outpatient (CLI) | payer MEDICARE, SELFPAY ==
--- NOTE | 2023-03-02 08:30 | DI.RAD_ITS ---
Exam(s) XR FOOT LT COMPLETE EXAM: XR FOOT LT COMPLETE CLINICAL HISTORY: Left foot pain,m79.672. TECHNIQUE: 2D digital imaging was performed of the left foot. Three images were obtained. AP, obli que and lateral views were obtained. COMPARISON: No exams were available for comparison FINDINGS: BONES: No acute fracture is present. No bony destructive lesion is seen. There is a plantar calcaneal spur. JOINTS: No dislocation present. SOFT TISSUE: Normal. IMPRESSION: Plantar calcaneal spur. DATA REPOSITORY: RADIATION DOSE DELIVERED:
--- NOTE | 2023-03-02 08:30 | DI.RAD_ITS ---
Exam(s) XR FOOT RT COMPLETE EXAM: XR FOOT RT COMPLETE CLINICAL HISTORY: Right foot pain,m79.671. TECHNIQUE: 2D digital imaging was performed of the right foot. Three images were obtained. AP, obl ique and lateral views were obtained. COMPARISON: No exams were available for comparison FINDINGS: BONES: No acute fracture is present. No bony destructive lesion is seen. JOINTS: No dislocation present. There are degenerative changes of the ankle with joint space narrowin g and spurring seen anteriorly. The joint spaces are otherwise well maintained. SOFT TISSUE: Normal. IMPRESSION: Mild degenerative changes of the ankle. DATA REPOSITORY: RADIATION DOSE DELIVERED:
== END ==
PROVIDERS: PCP Family Medicine; Visit Provider Podiatrist
DX: M77.32 Calcaneal spur, left foot (principal); M19.071 Primary osteoarthritis, right ankle and foot
CPT/HCPCS: 20550; 20600; 73630

== ENCOUNTER 2023-06-29 15:02 | Outpatient (CLI) | payer MEDICARE, SELFPAY ==
--- NOTE | 2023-06-29 14:15 | DI.RAD_ITS ---
Exam(s) XR KNEE RT 2V AP,LAT EXAM: XR KNEE RT 2V AP,LAT CLINICAL HISTORY: F/U RIGHT [facility]. TECHNIQUE: 2D digital imaging was performed. Three views. COMPARISON: CR XR KNEE RT 3V AP,LAT,CYRUS from 09/22/2021 FINDINGS: BONES: No acute fracture is present. No bony destructive lesion is seen. Spurring at the lateral fem oral condyle lateral tibial plateau as well as tibial spine. Mild spurring at the articular aspect o f the patella. JOINTS: There has been no change in the medial femoral tibial joint space prosthesis. The knee is no rmally aligned. No joint effusion is seen. SOFT TISSUE: Normal. IMPRESSION: Stable appearance of medial joint space prosthesis. DATA REPOSITORY: RADIATION DOSE DELIVERED:
== END 2023-06-29 15:03 | disposition home or self-care (01) ==
LOC: DIORS 15:02
PROVIDERS: PCP Family Medicine; Referring Provider Family Medicine; Visit Provider Physician Assistant
DX: Z96.651 Presence of right artificial knee joint (principal); Z47.1 Aftercare following joint replacement surgery
CPT/HCPCS: 99213; 73560

== ENCOUNTER → 2023-06-30 13:20 | Outpatient (BNVA) | payer MEDICARE, SELFPAY | PROVIDERS: PCP Family Medicine; Referring Provider Family Medicine; Visit Provider Podiatrist | DX: M21.621 Bunionette of right foot; M21.622 Bunionette of left foot; M76.62 Achilles tendinitis, left leg; M76.61 Achilles tendinitis, right leg; M72.2 Plantar fascial fibromatosis | CPT/HCPCS: 99213 ==

== ENCOUNTER 2023-07-12 04:34 | Outpatient (CLI) | payer MEDICARE, SELFPAY ==
[2023-07-12 13:01] LABS: ESR 7 mm/hr (0-30)
[2023-07-12 13:02] LABS: Abs Immature Grans 0.02 10^3/uL (0.0-0.06); Absolute Basophil Count 0.04 10^3/uL (0.0-0.2); Absolute Eosinophil Count 0.07 10^3/uL (0.0-0.7); Absolute Lymphocyte Count 1.23 10^3/uL (1.2-3.4); Absolute Monocyte Count 0.41 10^3/uL (0.1-0.8); Basophils % 0.6; Eosinophils % 1.1; HCT 44.4 % (36.0-46.0); HGB 13.9 g/dL (11.2-15.7); Immature Grans % 0.3; Lymphocytes % 19.3; MCH 28.2 pg (27.0-33.0); MCHC 31.3 % (32.0-36.0); MCV 90 fL (80-95); MPV 10.8 fL (8.0-11.0); Monocytes % 6.4; Neutrophils % 72.3; Platelet Count 257 10^3/uL (130-400); RBC 4.93 10^6/uL (3.93-5.22); RDW 13.2 % (11.7-14.6); RDW-SD 43.6 fL; WBC 6.37 10^3/uL (4.4-10.8)
[2023-07-12 13:49] LABS: C-Reactive Protein < 0.50 mg/dL (<or=0.5)
== END 2023-07-12 04:35 | disposition home or self-care (01) ==
LOC: LBO 04:34
PROVIDERS: PCP Family Medicine; Visit Provider Student in an Organized Health Care Education/Training Program
DX: T84.84XA Pain due to internal orthopedic prosthetic devices, implants and grafts, initial encounter (principal)
CPT/HCPCS: 36415; 85652; 85025; 86140

== ENCOUNTER → 2023-08-15 14:18 | Outpatient (BNVA) | payer MEDICARE, SELFPAY | PROVIDERS: PCP Family Medicine; Referring Provider Family Medicine; Visit Provider Student in an Organized Health Care Education/Training Program | DX: M70.51 Other bursitis of knee, right knee (principal); T84.84XA Pain due to internal orthopedic prosthetic devices, implants and grafts, initial encounter; Z96.651 Presence of right artificial knee joint | CPT/HCPCS: 99213 ==

== ENCOUNTER → 2023-09-01 00:28 | Outpatient (CLI) | payer MEDICARE, SELFPAY ==
--- NOTE | 2023-09-01 11:30 | DI.MAMMO_ITS ---
Exam(s) MAMMO SCREENING EXAM: MAMMO SCREENING CLINICAL HISTORY: Z12.31 Screening TECHNIQUE: Bilateral full field digital CC and MLO mammographic images were obtained with 3D tomosyn thesis and utilizing computer aided detection (CAD). COMPARISON: Available for comparison. FINDINGS: Masses/Architectural Distortion: Stable nodules are seen in the breast. No new nodules. No areas of architectural distortion are seen. Microcalcifications: No suspicious pleomorphic-type are seen. Skin Thickening/Nipple Retraction: None. IMPRESSION: 1. No significant interval change with no specific features of malignancy noted. 2. Unless there is more urgent need, screening mammography is recommended, as per [employer] guidelines. BI-RADS Category 2 - Benign Findings Breast Density - Category B - Scattered areas of fibroglandular density Breast density category C or D implies that the patient has dense breast tissue. Dense breast tissue is very common and is not abnormal but dense breast tissue can make it harder to find cancer on a ma mmogram. Also, dense breast tissue may increase their breast cancer risk. This information about the result of the mammogram report was provided to the patient to raise their awareness. Use this report when you speak with the patient about their risks for breast cancer, which includes their family hist ory. At that time, you may recommend for more screening tests (Ultrasound or MRI) as they might be us eful based on their risk. A negative radiographic report should not delay biopsy if a dominant or clinically suspicious mass is present. Up to ten percent of cancers are not identified on mammography. A negative report may reinforce clinical impression. Adenosis and dense breasts may obscure an underlying neoplasm. False positive reports average 6 to 10%. Patient will receive a letter notifying them of these results.
== END ==
PROVIDERS: PCP Family Medicine; Visit Provider Family Medicine
DX: Z12.31 Encounter for screening mammogram for malignant neoplasm of breast (principal)
CPT/HCPCS: 77063; 77067

== ENCOUNTER → 2023-11-14 13:39 | Outpatient (BNVA) | payer MEDICARE, SELFPAY | PROVIDERS: PCP Family Medicine; Visit Provider Student in an Organized Health Care Education/Training Program | DX: T84.84XA Pain due to internal orthopedic prosthetic devices, implants and grafts, initial encounter (principal); Z96.651 Presence of right artificial knee joint | CPT/HCPCS: 99213 ==

== ENCOUNTER 2023-12-21 01:42 | Outpatient (CLI) | payer MEDICARE, SELFPAY ==
--- NOTE | 2023-12-21 06:45 | DI.CT_ITS ---
Exam(s) CT LOWER EXTREMITY RT WO EXAM: CT LOWER EXTREMITY RT WO CLINICAL HISTORY: PAIN, ?LOOSENING,Z96.651,t84.84XA. TECHNIQUE: Imaging Protocol: Axial computed tomography images with coronal and sagittal reformatted images were created and reviewed. CONTRAST MATERIAL: Intravenous: None COMPARISON: CR XR KNEE RT 2V AP,LAT from 05/07/2020 CR XR KNEE RT 2V AP,LAT from 07/30/2020 CR XR KNEE RT 2V AP,LAT from 04/08/2021 CR XR KNEE RT 3V AP,LAT,CYRUS from 09/22/2021 CR XR KNEE LT 3V AP,LAT,CYRUS from 09/22/2021 CR XR KNEE RT 2V AP,LAT from 06/29/2023 FINDINGS: OSSEOUS: No evidence of fracture nor knee joint effusion. There is a medial compartment hemiarthroplasty which appears to be in satisfactory position. There i s mild lucency around the cement-bone interface of the tibial plateau component but this is unchanged from prior plain films of 04/08/2021 No obvious abnormality at the level of the medial femoral condyle component. There are some osteoarthritic degenerative changes evident in the lateral compartment. The height of the lateral compartment is relatively maintained but there are small marginal osteophytes off the ou ter aspect lateral compartment. Also mild degenerative changes in the patellofemoral compartment. IMPRESSION: Mild findings at the tibial component of the hemiarthroplasty as described above. No joint effusion. RADIATION DOSE DELIVERED: 148.89mGy.cm Total DLP DATA REPOSITORY: All CT scans at this facility are submitted to the National Radiology Data Registry (NRDR) Dose Index Registry (DIR) with the [employer] ([employer]). RADIATION OPTIMIZATION: All CT scans at this facility use at least one of these dose optimization te chniques: automated exposure control; mA and/or kV adjustment per patient size (includes targeted exa ms where dose is matched to clinical indication); or iterative reconstruction.
--- NOTE | 2023-12-21 06:45 | DI.NM_ITS ---
Exam(s) NM BONE SCAN 3 PHASE EXAM: NM BONE SCAN 3 PHASE CLINICAL HISTORY: PAIN, ?LOOSENING,Z96.651,t84.84XA. TECHNIQUE: Injected Dose: 25 mCi Tc-99m MDP COMPARISON: CR XR FOOT RT COMPLETE from 03/02/[address] LOWER EXTREMITY RT WO from 12/21/2023 FINDINGS: Perfusion: Symmetric. Blood Pool: Symmetric. Delayed: Increased activity seen adjacent to the tibial component of the medial femoral tibial joint space prosthesis. Findings may indicate loosening. Post small focus of increased activity seen in t he patella. Whole body images show increased activity in the right ankle and lower lumbar spine, lik odalis degenerative. IMPRESSION: Increased activity at the tibial component of the medial femoral tibial knee prosthesis, suspicious f or loosening. DATA REPOSITORY:
[2023-12-21 07:55] LABS: ESR 25 mm/hr (0-30)
[2023-12-21 08:15] LABS: C-Reactive Protein < 0.50 mg/dL (<or=0.5)
== END 2023-12-21 02:02 ==
LOC: DI 01:42
PROVIDERS: PCP Family Medicine; Visit Provider Student in an Organized Health Care Education/Training Program
DX: T84.84XA Pain due to internal orthopedic prosthetic devices, implants and grafts, initial encounter (principal); Z96.651 Presence of right artificial knee joint
CPT/HCPCS: 85652; 73700; 78315; 86140

== ENCOUNTER → 2023-12-29 08:14 | Outpatient (BNVA) | payer MEDICARE, SELFPAY | PROVIDERS: PCP Family Medicine; Referring Provider Family Medicine; Visit Provider Student in an Organized Health Care Education/Training Program | DX: Z47.1 Aftercare following joint replacement surgery (principal); T84.84XD Pain due to internal orthopedic prosthetic devices, implants and grafts, subsequent encounter; T84.032D Mechanical loosening of internal right knee prosthetic joint, subsequent encounter; Z96.651 Presence of right artificial knee joint | CPT/HCPCS: 99213 ==

== ENCOUNTER 2024-08-02 13:26 | Outpatient (CLI) | payer MEDICARE, SELFPAY ==
--- NOTE | 2024-08-02 09:23 | DI.RAD_ITS ---
Exam(s) XR KNEE RT 2V AP,LAT EXAM: XR KNEE RT 2V AP,LAT CLINICAL HISTORY: S/P R TKA. TECHNIQUE: 2D digital imaging was performed. Two images were obtained. AP and lateral views were ob tained. COMPARISON: CR XR KNEE RT 2V AP,LAT from 06/29/2023 FINDINGS: BONES: There are stable post operative changes of a right unicompartmental knee arthroplasty present. No fracture or dislocation. JOINTS: The orthopedic hardware is in good position. No evidence of hardware loosening. There are d egenerative changes seen in the patellofemoral and lateral femoral tibial joints. There is a very sm all joint effusion. SOFT TISSUE: Normal. IMPRESSION: Stable right unicompartmental knee arthroplasty. DATA REPOSITORY: RADIATION DOSE DELIVERED:
== END 2024-08-02 13:27 | disposition home or self-care (01) ==
LOC: DIORS 13:26
PROVIDERS: PCP Family Medicine; Visit Provider Physician Assistant
DX: T84.84XD Pain due to internal orthopedic prosthetic devices, implants and grafts, subsequent encounter; T84.032D Mechanical loosening of internal right knee prosthetic joint, subsequent encounter; Z96.651 Presence of right artificial knee joint
CPT/HCPCS: 99213; 73560

== ENCOUNTER 2025-02-07 11:33 | Outpatient (CLI) | payer MEDICARE, SELFPAY ==
--- NOTE | 2025-02-07 09:17 | DI.RAD_ITS ---
Exam(s) XR KNEE RT 2V AP,LAT EXAM: XR KNEE RT 2V AP,LAT INDICATION: S/P R TKA. COMPARISON: No exams were available for comparison TECHNIQUE: 2D digital imaging was performed. Two views. FINDINGS: There is stable alignment of the medial femoral tibial joint space prosthesis. There are no abnormal surrounding bony lesions. DATA REPOSITORY: RADIATION DOSE DELIVERED:
== END 2025-02-07 11:34 | disposition home or self-care (01) ==
LOC: DIORS 11:33
PROVIDERS: PCP Family Medicine; Referring Provider Family Medicine; Visit Provider Student in an Organized Health Care Education/Training Program
DX: T84.84XD Pain due to internal orthopedic prosthetic devices, implants and grafts, subsequent encounter (principal)
CPT/HCPCS: 99213; 73560

== ENCOUNTER 2025-02-28 09:43 | Outpatient (REF) | payer MEDICARE, SELFPAY ==
[2025-02-28 15:47] LABS: ALT 44 U/L (14-59); AST 17 U/L (15-37); Albumin 3.8 g/dL (3.4-5.0); Alkaline Phosphatase 87 U/L (46-116); Anion Gap 10.0 mmol/L (3-11); BUN 19 mg/dL (7-18); Bilirubin, Total 0.6 mg/dL (0.2-1.0); CO2 30.0 mmol/L (21.0-32.0); Calcium 9.0 mg/dL (8.5-10.1); Chloride 103 mmol/L (98-107); Cholesterol 222 mg/dL (<200); Glucose 104 mg/dL (74-106); HDL Cholesterol 68 mg/dL (>or=50); Potassium 4.1 mmol/L (3.5-5.1); Sodium 143 mmol/L (136-145); Total Protein 6.8 g/dL (6.4-8.2)
== END 2025-02-28 09:44 | disposition home or self-care (01) ==
LOC: NCHCN 09:43
PROVIDERS: PCP Family Medicine; Visit Provider Family Medicine
DX: Z13.220 Encounter for screening for lipoid disorders (principal); Z13.6 Encounter for screening for cardiovascular disorders
CPT/HCPCS: 80053; 80061